=== PATIENT | male | born 1950 | race Caucasian/White ===

== ENCOUNTER 2023-08-06 06:45 | Observation (INO) ==
--- NOTE | 2023-07-04 13:15 | PAT Medication Instructions ---
Medication Instructions Date of Service July 04, 2023 Home Medications allopurinol 300 mg tablet 300 mg PO PM aspirin 81 mg tablet 81 mg PO HS atenolol 50 mg tablet 50 mg PO QAM metformin 500 mg tablet 500 mg PO HS Centrum Adult Multivitamin 1 tab PO QAM omeprazole 20 mg capsule,delayed release 20 mg PO HS travoprost 0.004 % eye drops (Travatan Z) 1 drp ophthalmic (eye) HS MEDICATION INSTRUCTIONS: ASK your prescriber and surgeon aspirin 81 mg tablet 81 mg PO HS DO NOT take the morning of surgery Centrum Adult Multivitamin 1 tab PO QAM Take morning of surgery With a small sip of water, OTHERWISE NOTHING TO EAT OR DRINK AFTER MIDNIGHT: atenolol 50 mg tablet 50 mg PO QAM Take evening before surgery metformin 500 mg tablet 500 mg PO HS allopurinol 300 mg tablet 300 mg PO PM omeprazole 20 mg capsule,delayed release 20 mg PO HS travoprost 0.004 % eye drops (Travatan Z) 1 drp ophthalmic (eye) HS (bring to hospital) Other Notes If you have any questions please call us at [phone] or [phone] or [phone] or [phone]
--- NOTE | 2023-07-06 11:23 | Anesthesiology Consultation ---
Date of Service July 06, 2023 Assessment & Plan (1) Encounter for pre-operative examination: - Check BSG AM DOS - Infectious disease screening: Per assessment on 07/06/23: No known infectious disease contacts or current infectious disease symptoms. No noted recent Covid positive test result. - Outpatient joint assessment: Pt currently scheduled for inpatient pathway. If surgeon requests review for outpatient joint pathway, patient is not recommended candidate for outpatient joint program from anesthesia standpoint based on available information. - Patient acceptable risk for surgery pending surgeon-ordered PCP preop evaluation ([facility], appt 07/25). Chart Review Chart Review: Patient seen in Pre Admission Testing Teaching & Discussion Pre-Anesthesia Teaching/Discussion Notes: Instructed NPO after midnight before surgery,except medications with 15 cc of water. Medication instructions provided according to the PAT guidelines. History Surgery Operation Date: 08/06/23 07:15 Proposed Procedures p Right Total Knee Arthroplasty - Anders Rodriguez MD Height/Weight Height: 5 ft 11 in Weight: 120.6 kg Allergies Allergy/AdvReac Type Severity Reaction Status Date / Time No Known Drug Allergies Allergy Unknown . Verified 07/04/23 15:55 Medications Home Medications Medication Instructions Recorded Confirmed Last Taken allopurinol 300 mg tablet 300 mg PO PM 07/04/23 07/04/23 Unknown aspirin 81 mg tablet 81 mg PO HS 07/04/23 07/04/23 Unknown atenolol 50 mg tablet 50 mg PO QAM 07/04/23 07/04/23 Unknown metformin 500 mg tablet 500 mg PO HS 07/04/23 07/04/23 Unknown multivitamin with minerals-folic 1 tab PO QAM 07/04/23 07/04/23 Unknown acid 80 mcg chewable tablet (Centrum Adult 50 Plus) omeprazole 20 mg capsule,delayed 20 mg PO HS 07/04/23 07/04/23 Unknown release travoprost 0.004 % eye drops 1 drp ophthalmic (eye) HS 07/04/23 07/04/23 Unknown (Travatan Z) Past Medical History Medical History Diabetes type 2, controlled Dyslipidemia GERD (gastroesophageal reflux disease) Glaucoma Gout HTN (hypertension) Obesity Stage 3 chronic kidney disease Exercise / Class Metabolic Activity II 4-5 Yardwork/Stairs/Walk up hill Past Surgical History Surgical History H/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 History of colonoscopy Past Anesthesia History No Hx of Anesthesia Complications and No Family Hx of Anesthesia Complications History of PONV No Hx of PONV and No Hx of Motion Sickness Social History Smoking Status: Former smoker Do You Dip or Chew Tobacco: No Smoking End Date: Quit 1970s Hx Alcohol Use: No Hx Substance Use: No Review of Systems Patient denies chest pain, shortness of breath, dyspnea on exertion, fever, chills, cough, wheezing, palpitations. Physical Exam Vital Signs VITALS BP 124/78 P 53 TEMP 98.0 SP02 98%RA RESP 18 PHYSICAL Full cervical extension range of motion. Full TMJ range of motion. TMD 3 finger breaths Mallampati Score 3 Dentition: missing molar, + implant/+ crown (molars) Lungs: clear throughout to auscultation Cardiac: regular rate and rhythm, no murmurs noted Spine: normal Carotid arteries: negative bruit Extremities: no LE edema Lab Results Anesthesia Preop Results Results Anesthesia Widget: WBC 7.09 K/ul (4.8-10.8) 07/06/23 Hgb 13.4 g/dl (14.0-18.0) L 07/06/23 Hct 40.7 % (42.0-52.0) L 07/06/23 Plt 200 K/uL (130-400) 07/06/23 Na 141 mmol/L (136-145) 07/06/23 K 4.1 mmol/L (3.5-5.1) 07/06/23 Cl 108 mmol/L (98-107) H 07/06/23 CO2 29 mmol/L (21-32) 07/06/23 BUN 23 mg/dl (6-23) 07/06/23 Creat 0.96 mg/dl (0.6-1.4) 07/06/23 Glucose Level 162 mg/dl (70-99(Fasting)) H 07/06/23 PT 11.3 Seconds (9.0-12.0) 07/06/23 PTT 30 Seconds (21-31) 07/06/23 INR 1.0 (0.9-1.1) 07/06/23 HA1c 6.6 % (4.5-5.6) H 07/06/23 Urine Color Dark Yellow 07/06/23 Urine Appearance Clear (Clear) 07/06/23 Urine pH 6.0 (4.5-7.5) 07/06/23 Urine Specific [place] 1.030 (1.000-1.030) 07/06/23 Urine Protein Negative (Negative) 07/06/23 Urine Glucose (UA) Negative (Negative) 07/06/23 Urine Ketones Trace (Negative) H 07/06/23 Urine Blood Negative (Negative) 07/06/23 Urine Nitrite Negative (Negative) 07/06/23 Urine Bilirubin Negative (Negative) 07/06/23 Urine Urobilinogen Negative (Negative) 07/06/23 Urine Leukocyte Esterase Negative (Negative) 07/06/23 Blood Type A Positive 07/06/23 Antibody Screen NEGATIVE 07/06/23 Testing Electrocardiogram Date: 04/05/23 SR with PACs at 90bpm. "Otherwise normal ECG" Chest X-Ray Date: 07/06/23 FINDINGS: Right axillary is enlarged. No pneumothorax, pleural effusion or airspace consolidation mild pulmonary hyperinflation. Spondylotic spurring of the spine. IMPRESSION: No acute process.
--- NOTE | 2023-07-31 09:03 | History & Physical Report ---
Date of Service July 31, 2023 Assessment & Plan (1) Primary osteoarthritis of right knee: Plan: Treatment options discussed with the patient. He has failed conservative measures and would like to proceed with surgery. Risks, benefits and alternatives to surgery including but not limited to infection, DVT, pain, stiffness, need for revision surgery, damage to blood vessels, damage to nerves, PE, , were discussed with the patient and they wish to proceed. Plan on right total knee arthroplasty scheduled for 08/06/23 at [facility] with Dr. Rodriguez. Plan on home health PT post op. Aspirin 81mg twice daily for 1 mo post op for DVT prophylaxis. All questions answered. History of Present Illness Chief Complaint: Right knee pain Primary Care Provider: Emiliano Hightower, DO 73yo male with PMHx significant for DM2, HTN, gout, CKD, who presents with ongoing right knee pain. He has failed conservative measures. Pain is interfering with his daily activity. He would like to proceed with surgical management. Patient denies headaches, sweats, fevers, chills, double vision, blurred vision, cough, sore throat, dysphagia, chest pain, sob, wheezing, n/v/d/c, numbness, tingling, fatigue, urinary symptoms, mood disorders. ROS positive for right knee pain and stiffness. Allergies Allergy/AdvReac Type Severity Reaction Status Date / Time No Known Drug Allergies Allergy Unknown . Verified 07/04/23 15:55 Home Medications Medication Instructions Recorded Confirmed Type allopurinol 300 mg tablet 300 mg PO PM 07/04/23 07/04/23 History aspirin 81 mg tablet 81 mg PO HS 07/04/23 07/04/23 History atenolol 50 mg tablet 50 mg PO QAM 07/04/23 07/04/23 History metformin 500 mg tablet 500 mg PO HS 07/04/23 07/04/23 History multivitamin with minerals-folic 1 tab PO QAM 07/04/23 07/04/23 History acid 80 mcg chewable tablet (Centrum Adult 50 Plus) omeprazole 20 mg capsule,delayed 20 mg PO HS 07/04/23 07/04/23 History release travoprost 0.004 % eye drops 1 drp ophthalmic (eye) HS 07/04/23 07/04/23 History (Layne Walls) Past Med/Surg History Medical History Diabetes type 2, controlled Dyslipidemia GERD (gastroesophageal reflux disease) Glaucoma Gout HTN (hypertension) Obesity Stage 3 chronic kidney disease Surgical History H/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 History of colonoscopy Social History Smoking Status: Former smoker Tobacco Type: Cigarettes Smoking End Date: Quit ; Second Hand Exposure: No; Do You Dip or Chew Tobacco: No; Tobacco Cessation Education Requested by Patient: No Hx Alcohol Use: No Hx Substance Use: No Preferred Language: Mauritian Communication Ability: Effective Upper Trimmer Required: No Beliefs That Will Affect Care: None Current Living Situation: Spouse Other Information That Helps Us Care for You: No Feels Safe at Home: Yes Safety Concerns: Feels Safe At This Time Assistive Devices: Glasses Review of Systems All systems reviewed & are unremarkable except as noted in HPI & below Physical Exam Constitutional: well developed and well nourished; no acute distress Eyes: PERRL, conjunctivae normal, anicteric sclerae ENMT: external ear and nose normal, oropharynx normal Neck: trachea midline, no thyromegaly Respiratory: normal respiratory effort, lungs clear to auscultation Cardiovascular: RRR, no murmur, no edema Musculoskeletal: Right knee: Varus alignment. Mild effusion. Tenderness medial joint line. ROM 15-120 degrees. Stable to valgus and varus stress. Skin: no rashes, warm and dry Neurologic: patellar DTR's 2+ bilat, sensation intact Psychiatric: A+Ox3, euthymic affect Results & Data Diagnostic Findings Right knee x-ray demonstrates mild varus alignment to his knee with [id number] medial compartment with subchondral sclerosis subchondral cystic changes some early bone loss with some subluxation of the femur medial tibial and flexion view. Is maintained patellofemoral joint centrally aligned but patellofemoral osteophytes patellofemoral arthritic changes as well.
[~2023-08-06 06:45] MED LIST: BUPIVACAINE 0.5 % 5 MG/1 ML PF 10ML VIAL ONE; EPINEPHrine INJ 1 MG/ML AMP ONE; ROPIVACAINE 0.5% 5 MG/ML 30 ML VIAL ONE
--- OUTSIDE RECORDS SUMMARY | 2023-08-06 06:52 | External Medical Summary | Summary of Care ---
Author Name Unknown Organization [facility] Address [address] [place] [address] Phone [phone] Care Team Providers Care Hotel Supplies Salesperson Name Role Phone Katja Biggs DO, David Vincent Primary Care Provid er Reason for Visit * Reason Comments Status Check Pre-op clearance Encounter Details Date Type Department Care Team (Latest Contact Info) Description 07/25/2023 8:20 AM EST Office Visit [facility] [address] [place] [phone] Emiliano Hightower Jr., DO [address] [place] [id number] Pre-op evaluation*; Osteoarthritis of right knee, unspecified osteoarthritis type; Type 2 diabetes mellitus 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 chronic kidney disease, 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 ([facility]); Type 2 diabetes mellitus with diabetic neuropathy, without long-term current use of insulin ([facility]); Severe obesity with body mass index (BMI) of 35.0 to 39.9 with comorbidity ([facility]); DM type 2 nursing care encounter (HCC); Nasal drainage Allergies Active Allergy Reactions Criticality Noted Date Comments Atorvastatin Muscle pain 04/01/2019 Brinzolamide 11/29/2002 bitter taste -Azopt documented as of this encounter (statuses as of 07/25/2023) Medications Medication Sig Dispensed Refills Start Date End Date Status ASPIRIN 81 MG PO TABS Take by mouth every night at bedtime . 0 Active metFORMIN HCl ER 500 MG Oral Tablet Extended Release 24 Hour (Glucophage XR) TAKE 1 TABLET DAILY 90 Tablet 2 09/01/2022 Active Omeprazole 20 MG Oral Capsule Delayed Release (PriLOSEC) TAKE 1 CAPSULE AT BEDTIME 90 Capsule 3 09/09/2022 Active Atenolol 50 MG Oral Tablet (Tenormin)Indications :HTN, goal below 140/90 TAKE 1 TABLET EVERY MORNING 90 Tablet 3 11/08/2022 Active Travoprost (FERNANDEZ Free) 0.004 % Ophthalmic Solution (Travatan Z) INSTILL 1 DROP INTO BOTH EYES BEFORE BEDTIME 7.5 mL 3 01/10/2023 Active Allopurinol 300 MG Oral Tablet (Zyloprim)Indications :Gout, unspecified cause, unspecified chronicity, unspecified site TAKE 1 TABLET DAILY 90 Tablet 2 04/12/2023 Active COVID-19 mRNA Vaccine 12 years and above Pfizer 30 MCG/0.3 ML IM SUSP Inject into a large muscle. 0.3 mL 0 04/20/2023 Active documented as of this encounter (statuses as of 07/25/2023) Active Problems Problem Noted Date Diagnosed Date DDD (degenerative disc disease), cervical 2022 Type 2 diabetes mellitus wit h diabetic neuropathy, without long-term current use of insulin 10/17/2022 Type 2 diabetes mellitus wit h stage 3a chronic kidney disease 04/19/2022 Type 2 diabetes mellitus wit h hemoglobin A1c goal of less than 7.0% 04/13/2020 Type 2 diabetes mellitus wit h chronic kidney disease and hypertension 04/13/2020 Primary open angle glaucoma (POAG) of both eyes, moderate stage 07/10/2019 Hereditary and idiopathic peripheral neuropathy 04/01/2019 Hypertensive kidney disease with stage 3 chronic kidney disease 10/24/2018 Severe obesity with body mas s index (BMI) of 35.0 to 39.9 with comorbidity 03/19/2018 Gouty arthropathy 02/27/2017 Advance directive on file 11/24/2014 Overview: No, Advance Directive brochure given to patient at prior appointment. Dyslipidemia 09/15/2013 Contracture of palmar fascia 08/23/2010 PRIM OPEN ANGLE GLAUCOMA 08/29/2004 Esophageal reflux HTN, goal below 140/90 History of colonic polyps Overview: adenomatous repeat colonoscpy un 5 yrs documented as of this encounter (statuses as of 07/25/2023) Resolved Problems Problem Noted Date Diagnosed Date Resolved Date Diabetes mellitus 04/13/2020 10/12/2020 IFG (impaired fasting glucose) 04/01/2019 10/12/2020 Kidney disease, chronic, sta ge III (GFR 30-59 ml/min) 09/23/2018 10/30/2018 Overview: Per CKD protocol #1 Prediabetes 07/31/2017 09/04/2017 Overview: Per Prediabetes protocol #1 Class 2 obesity with body ma ss index (BMI) of 35 to 39.9 without comorbidity 02/27/2017 8 Obesity, Class II, BMI 35-39 .9, isolated (see actual BMI) 09/13/2009 02/27/2017 Overview: Per Obesity Taxonomy Dyslipidemia, goal to be determined 06/03/2009 09/15/2013 Overview: Per Lipid Taxonomy. OBESITY, UNSPECIFIED 09/22/2005 010 Overview: Per Obesity Taxonomy Gout 02/27/2017 HYPERCHOLESTEROLEMIA 009 Overview: Per Lipid Taxonomy. documented as of this encounter (statuses as of 07/25/2023) Immunizations Name Administration Dates Next Due COVID-19 mRNA, LNP-s, No Pre serve, 2-Dose Series (Pfizer) 05/28/2021,09/22/2020,09/01/2020 Covid-19, Mrna, Lnp-s, Pf, B ivalent, 30 Mcg, IM, 12 yrs and above (Pfizer) 04/19/2022 Pneumococcal Conjugate Vacc, 13 Valent (Prevnar) 11/24/2014 Pneumococcal Polysaccharide PPV23 (Pneumovax) 10/12/2020 Season Influenza, Quad, PF, Adjuvanted, 65+ Yrs, IM (FLUAD) 04/13/2020 Seasonal Influenza, PF, 6 M & above, IM , (FluLaval or Fluzone) 03/29/2022,03/10/2021,03/19/2018 Seasonal Influenza, Quadriva lent Hd (Fluzone Hd) 04/20/2023 Seasonal Influenza, Quadriva lent, No Preserve, IM 06/01/2017,03/14/2016 Seasonal Influenza, Split, I IV3, With Preserve, Inj 03/11/2013,05/24/2012,07/04/2011,04/19,04/12/2009 TD - Tetanus/Diptheria (ADULT) 04/19/2000 TDAP (age 10 and older)(Boostrix) 01/02/2018, TDAP (age 11 and older)(Adacel) 06/30/2010 Varicella Zoster Vaccine (Adult) 07/02/2013 Zoster Vaccine Recombinant (Shingrix) 07/14/2020 ,04/20/2020 documented as of this encounter Social History Tobacco Use Types Packs/Day Years Used Date Smoking Tobacco: Former Cigarettes 0.5 1 Q uit: 06/18/1970 Passive Smoke Exposure: Past Smokeless Tobacco: Former Comments:quit 1970 Alcohol Use Standard Drinks/Week Comments Yes 0 (1 standard drink = 0.6 oz pure alcohol) Rare. As of 08.04.2006, the last noted alcohol intake was 3 ounces. PHQ-2 Answer Date Recorded PHQ Adult Total Score 0 04/20/2023 Hunger Vital Sign Answer Date Recorded Within the past 12 months, y ou worried that your food would run out before you got the money to buy more. Never true 09/08/19 23 Within the past 12 months, t he food you bought just didn't last and you didn't have money to get more. Never true 09/07/2022 Sex and Gender Information Value Date Recorded Sex Assigned at Male 04/01/2019 8:39 AM EDT Gender Identity Male 04/01/2019 8:39 AM EDT Sexual Orientation Straight 04/01/2019 8: 39 AM EDT Job Start Date Occupation Industry Not on file Not on file Not on file documented as of this encounter Last Filed Vital Signs Vital Sign Reading Time Taken Comments Blood Pressure 122/70 07/25/2023 8:23 AM EST Pulse 56 07/25/2023 8:23 AM EST Temperature 35.4 C (95.7 F) 07/25/2023 8:23 AM ES T Respiratory Rate - - Oxygen Saturation 98% 07/25/2023 8:23 AM EST Inhaled Oxygen Concentration - - Weight 114.1 kg (251 lb 9.6 oz) 07/25/2023 8:23 AM EST Height 179.1 cm (5' 10.5") 07/25/2023 8:23 AM ES T Body Mass Index 35.59 07/25/2023 8:23 AM EST documented in this encounter Patient Instructions * Patient Instructions* Sarah Keller LPN - 07/25/2023 8:23 AM EST Images from the original note were not included. Diabetic Retinopathy: Evaluating Your Eyes Diabetic retinopathy is a condition that happens when diabetes damages blood vessels in the rear ofthe eye. It can lead to vision loss. To help catch it early, have a complete dilated eye exam at least once a year. During the exam, the eye healthcare provider will review your medical history, examine your eyes, and check your vision. Women who are and have pre-existing type 1 or type 2 diabetes have an increased risk of retinopathy. Women with diabetes should have an eye exam before or in the first trimester. They should continue to be monitored every trimester and for 1 year after delivery, depending on the severity of the retinopathy. The retina is the light-sensitive part of the eye that allows you to see. High blood sugar can damage blood vessels of the retina and cause them to leak or bleed. This damage can lead to abnormal blood vessel growth. This condition is called diabetic retinopathy. You may not have symptoms early in the disease. Later, there may be floaters, blurred vision, or poor night vision. There may also be partial or complete vision loss. Early cases of diabetic retinopathy can be treated by carefully controlling blood sugar, blood pressure, and cholesterol. Surgery or laser treatments may help restore lost vision. Laser surgery can shrink abnormal blood vessels or close ones that are leaking. Medicines injected in the eye can help decrease swelling of the retina. Home care Take all medicines, including insulin or oral diabetic medicine, exactly as prescribed. Follow the diet advised by your healthcare provider. If you have high cholesterol, follow a low-fat, low-cholesterol diet. Monitor blood sugars as advised. Try to achieve your ideal weight. If you smoke, quit smoking. Tobacco use worsens the effect of diabetes on your blood vessels. If you have high blood pressure, consider buying an automatic blood pressure machine. These are available at most pharmacies. Use this to monitor your blood pressure. Report your blood pressure readings to your healthcare provider. Exercise regularly. Follow-up care Follow up with your healthcare provider, or as advised. You must have a complete eye exam at least once a year, more often if needed. Untreated diabetic retinopathy can lead to complete loss of vision. Occupational therapists can help you adapt to any vision loss you have, including learning techniques to safely administer insulin. When to seek medical advice Call your healthcare provider right away if any of these occur. Increasing blurriness or any sudden changes in your vision Sudden flashes of light inside your eye New floaters (small dots or strings that seem to be moving across your field of vision) Eye pain, redness, or discharge from your eyelid New dark spots appearing in your field of vision Halos around lights Dimness of vision Partial or complete loss of vision Women with diabetes should have a complete eye exam before becoming , or as soon as possible when they find out they are . Retinopathy sometimes worsens during . Your eye exam Your eye healthcare provider uses an eye chart and other tools to check your vision. Then he or sheexamines your eyes for signs of disease. You are given eye drops to widen (dilate) your pupils. Youmay have one or more of the following tests: Tonometry to measure fluid pressure inside the eye. Slit lamp exam to allow the healthcare provider to view the structures of your eye. Ultrasound to create an image of the eye using sound waves. Ultrasound may be used if blood is found in the clear gel that fills the eye (vitreous). Ocular coherence tomography (OCT) to create an image of the retina using light waves. This shows ifthere is fluid leaking into certain parts of the eye. It can also measure the thickness of the retina. Fluorescein angiography This test may be done to check the health of the inside lining of the eye (retina). It also checks the tiny blood vessels (capillaries) that carry blood to the retina. During the test: Photographs are taken of the retina. A dye is then injected into the bloodstream through the arm or hand. The dye travels to the capillaries in the eye. More photographs are taken of the retina. The dye causes the capillaries to stand out on the photographs. You may feel brief nausea during the procedure. For a few hours after the test, your skin, eyes, and urine may appear yellow. Talk with your healthcare provider for more information about this test. Date Last Reviewed: 11/17/[id number] [employer]. [address] [place] [address], [place] [address]. All rights reserved. This information is not intended as a substitute for professional medical care. Always follow your healthcare professional's instructions. documented in this encounter Progress Notes * Emiliano Hightower Jr., DO - 07/25/2023 8:54 AM EST Subjective: Mateusz Kelly is a 73 year old male. Chief Complaint Patient presents with Status Check Pre-op clearance HPI: patient presents today for pre op evaluation for right knee replacement. Overall doing ok, buthaving more sinus and nasal drainage. Comes and goes, restarted this AM. No fevers, N/V. Wants COVID testing for this- agreed and ordered. No CP or SOB. No personal or family history of problems withsurgery or anesthesia. Of note have blood work from [facility], but no EKG or CXR- per patient was ordered and checked by surgeon. Has instructions on when and what medication to hold prior to surgery. No other new complaints. PHM: Patient Active Problem List Diagnosis Code PRIM OPEN ANGLE GLAUCOMA H40.1190 Esophageal reflux K21.9 HTN, goal below 140/90 I10 History of colonic polyps Z86.010 Contracture of palmar fascia M72.0 Dyslipidemia E78.5 Advance directive on file Z78.9 Gouty arthropathy M10.9 Severe obesity with body mass index (BMI) of 35.0 to 39.9 with comorbidity (HCC) E66.01 Hypertensive kidney disease with stage 3 chronic kidney disease (HCC) I12.9, N18.30 Hereditary and idiopathic peripheral neuropathy G60.9 Primary open angle glaucoma (POAG) of both eyes, moderate stage H40.1132 Type 2 diabetes mellitus with hemoglobin A1c goal of less than 7.0% (HCC) E11.9 Type 2 diabetes mellitus with chronic kidney disease and hypertension [id number] Type 2 diabetes mellitus 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 chronic kidney disease (HCC) E11.22, N18.31 Type 2 diabetes mellitus with diabetic neuropathy, without long-term current use of insulin ([facility]) E11.40 DDD (degenerative disc disease), cervical M50.30 Current Outpatient Medications Medication Sig Dispense Refill ASPIRIN 81 MG PO TABS Take by mouth every night at bedtime . metFORMIN HCl ER 500 MG Oral Tablet Extended Release 24 Hour (Glucophage XR) TAKE 1 TABLET DAILY 90Tablet 2 Omeprazole 20 MG Oral Capsule Delayed Release (PriLOSEC) TAKE 1 CAPSULE AT BEDTIME 90 Capsule 3 Atenolol 50 MG Oral Tablet (Tenormin) TAKE 1 TABLET EVERY MORNING 90 Tablet 3 Travoprost (FERNANDEZ Free) 0.004 % Ophthalmic Solution (Travatan Z) INSTILL 1 DROP INTO BOTH EYES BEFOREBEDTIME 7.5 mL 3 Allopurinol 300 MG Oral Tablet (Zyloprim) TAKE 1 TABLET DAILY 90 Tablet 2 COVID-19 mRNA Vaccine 12 years and above Pfizer 30 MCG/0.3 ML IM SUSP Inject into a large muscle. 0.3 mL 0 No current facility-administered medications for this visit. Past Medical History: Diagnosis Date Benign neoplasm of colon adenomatous repeat colonoscpy un 5 yrs Cataract incipient, senile OU CKD (chronic kidney disease), stage III ([facility]) Dry eyes Dyslipidemia, goal LDL below 160 Esophageal reflux Gout HTN, goal below 140/90 IFG (impaired fasting glucose) 04/01/2019 INFORMATION 01/2006 pachy 532/508;+1/+3 Primary open angle glaucoma 0.85/0.90+ (07/08)Tmax 24/; VF (04/09);HRT 02/25 Type 2 diabetes mellitus with hemoglobin A1c goal of less than 7.0% ([facility]) 04/13/2020 Past Surgical History: Procedure Laterality Date COLONOSCOPY W/ LESION REMOVAL, SNARE 09/06/2007 polyp x 3- adenomatous repeat in 5 yrs COLONOSCOPY, DIAGNOSTIC (RECTUM) 09/23/2012 COLONOSCOPY FLEXIBLE PROXIMAL DIAGNOSTIC performed by Alessio Marsh MD at [facility]COPY [facility] COLONOSCOPY, DIAGNOSTIC (RECTUM) 09/12/2017 internal hemorrhoids/recall 5 years/COLONOSCOPY FLEXIBLE PROXIMAL DIAGNOSTIC performed by Alessio Fan MD at [facility] COLONOSCOPY, DIAGNOSTIC (RECTUM) N/A 02/22/2023 diverticulosis/COLONOSCOPY FLEXIBLE PROXIMAL DIAGNOSTIC performed by Harper Bal MD at [facility] LASER TRABECULOPLASTY 01/09/2008 ALT OS inf 180 LASER TRABECULOPLASTY 02/06/2008 ALT OD inf 180 RELEASE PALM CONTRACTURE W/DIGIT Left 05/15/2022 FASCIECTOMY PARTIAL PALMAR ADDITIONAL DIGITS performed by Avinash Fox Jr., MD at OR [facility] Family History Problem Relation Age of Onset Diabetes Grandmother (Maternal) Review of patient's allergies indicates: Allergen Reactions Atorvastatin Muscle pain Brinzolamide bitter taste -Azopt Extensive ROS Constitutional (f/c/wt/vision/hearing): Negative Resp (cough/sob/woods): see above hpi CV (cp/palp/fluttering/diaphoresis/woods/pnd):Negative GI (n/v/d/hrtburn): Negative Endo (hair/cold or heat intol/ 3 p's): Negative Neuro (shaking/weak/fatigu/parasthesi/): Negative Skin (rash/easy bruis/xerosis): Negative (nocturia/hesit/drib/sexual review): Negative Objective: BP 122/70 | Pulse 56 | Temp 35.4 C (95.7 F) (Temporal Artery) | Ht 1.791 m (5' 10.5") | Wt 114.1 kg (251 lb 9.6 oz) | SpO2 98% | BMI 35.59 kg/m | BSA 2.38 m Physical Exam: General: alert, healthy, no distress Head: Normocephalic, No masses, lesions, tenderness or abnormalities Ears: External ears normal, Canals clear, TM's Normal Neck: supple, no adenopathy, no bruits, thyroid normal size, non-tender, without nodularity Heart: regular rate & rhythm, no murmurs and no gallops Lungs: clear to auscultation Abdomen: abdomen soft, nontender, normal bowel sounds and no masses or organomegaly Neuro Exam: alert & oriented x 3 with fluent speech Skin: skin color, texture, turgor are normal, no rashes or significant lesions ASSESSMENT: ICD-10-CM 1. Pre-op evaluation Z01.818 2. Osteoarthritis of right knee, unspecified osteoarthritis type M17.11 3. 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 Type 2 diabetes mellitus with diabetic neuropathy, without long-term current use of insulin (HCC) E11.40 5. Severe obesity with body mass index (BMI) of 35.0 to 39.9 with comorbidity (HCC) E66.01 6. DM type 2 nursing care encounter (HCC) E11.9 7. Nasal drainage J34.89 PLAN: (Z01.818) Pre-op evaluation (primary encounter diagnosis) (M17.11) Osteoarthritis of right knee, unspecified osteoarthritis type Plan: Pending PCR, medically optimized. Will inform surgeon as such. (E11.22, N18.31) Type 2 diabetes mellitus 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 chronic kidney disease, unspecified whetherlong term insulin use (HCC) (E11.40) Type 2 diabetes mellitus with diabetic neuropathy, without long-term current use of insulin (HCC) (E66.01) Severe obesity with body mass index (BMI) of 35.0 to 39.9 with comorbidity (HCC) Plan: Continue to follow with at regularly scheduled follow up exams. (E11.9) DM type 2 nursing care encounter (HCC) Plan: TELEMEDICINE DIABETIC EYE As above. (J34.89) Nasal drainage Plan: INFLUENZA A/B RSV SARS-COV2,PCR Will check as above and treat accordingly. May use OTC zyrtec or radha otherwise for symptoms. Ifgetting worse, contact the office. Follow Up: Return if symptoms worsen or fail to improve. Return to the office as ordered. Return sooner if having any other problems or concerns. Emiliano Hightower Jr, DO * Sarah Keller LPN - 07/25/2023 8:23 AM EST Images from the original note were not included. The importance of having a yearly diabetic eye exam has been discussed with patient. Order and/or Referral placed along with patient instructions. Provider made aware. Sarah Keller LPN The importance of having a yearly diabetic eye exam has been discussed with patient. Order and/or Referral placed along with patient instructions. Provider made aware. Sarah Keller LPN Diabetic Retinopathy: Evaluating Your Eyes Diabetic retinopathy is a condition that happens when diabetes damages blood vessels in the rear ofthe eye. It can lead to vision loss. To help catch it early, have a complete dilated eye exam at least once a year. During the exam, the eye healthcare provider will review your medical history, examine your eyes, and check your vision. Women who are and have pre-existing type 1 or type 2 diabetes have an increased risk of retinopathy. Women with diabetes should have an eye exam before or in the first trimester. They should continue to be monitored every trimester and for 1 year after delivery, depending on the severity of the retinopathy. The retina is the light-sensitive part of the eye that allows you to see. High blood sugar can damage blood vessels of the retina and cause them to leak or bleed. This damage can lead to abnormal blood vessel growth. This condition is called diabetic retinopathy. You may not have symptoms early in the disease. Later, there may be floaters, blurred vision, or poor night vision. There may also be partial or complete vision loss. Early cases of diabetic retinopathy can be treated by carefully controlling blood sugar, blood pressure, and cholesterol. Surgery or laser treatments may help restore lost vision. Laser surgery can shrink abnormal blood vessels or close ones that are leaking. Medicines injected in the eye can help decrease swelling of the retina. Home care Take all medicines, including insulin or oral diabetic medicine, exactly as prescribed. Follow the diet advised by your healthcare provider. If you have high cholesterol, follow a low-fat, low-cholesterol diet. Monitor blood sugars as advised. Try to achieve your ideal weight. If you smoke, quit smoking. Tobacco use worsens the effect of diabetes on your blood vessels. If you have high blood pressure, consider buying an automatic blood pressure machine. These are available at most pharmacies. Use this to monitor your blood pressure. Report your blood pressure readings to your healthcare provider. Exercise regularly. Follow-up care Follow up with your healthcare provider, or as advised. You must have a complete eye exam at least once a year, more often if needed. Untreated diabetic retinopathy can lead to complete loss of vision. Occupational therapists can help you adapt to any vision loss you have, including learning techniques to safely administer insulin. When to seek medical advice Call your healthcare provider right away if any of these occur. Increasing blurriness or any sudden changes in your vision Sudden flashes of light inside your eye New floaters (small dots or strings that seem to be moving across your field of vision) Eye pain, redness, or discharge from your eyelid New dark spots appearing in your field of vision Halos around lights Dimness of vision Partial or complete loss of vision Women with diabetes should have a complete eye exam before becoming , or as soon as possible when they find out they are . Retinopathy sometimes worsens during . Your eye exam Your eye healthcare provider uses an eye chart and other tools to check your vision. Then he or sheexamines your eyes for signs of disease. You are given eye drops to widen (dilate) your pupils. Youmay have one or more of the following tests: Tonometry to measure fluid pressure inside the eye. Slit lamp exam to allow the healthcare provider to view the structures of your eye. Ultrasound to create an image of the eye using sound waves. Ultrasound may be used if blood is found in the clear gel that fills the eye (vitreous). Ocular coherence tomography (OCT) to create an image of the retina using light waves. This shows ifthere is fluid leaking into certain parts of the eye. It can also measure the thickness of the retina. Fluorescein angiography This test may be done to check the health of the inside lining of the eye (retina). It also checks the tiny blood vessels (capillaries) that carry blood to the retina. During the test: Photographs are taken of the retina. A dye is then injected into the bloodstream through the arm or hand. The dye travels to the capillaries in the eye. More photographs are taken of the retina. The dye causes the capillaries to stand out on the photographs. You may feel brief nausea during the procedure. For a few hours after the test, your skin, eyes, and urine may appear yellow. Talk with your healthcare provider for more information about this test. Date Last Reviewed: 11/17/[id number] [employer]. [address] [place] [address], [place] [address]. All rights reserved. This information is not intended as a substitute for professional medical care. Always follow your healthcare professional's instructions. documented in this encounter Nursing Notes * Sarah Keller LPN - 07/25/2023 8:20 AM EST Chief Complaint Patient presents with Status Check Pre-op clearance He has sinus drainage and a cough from the drainage. He would like a COVID test today. No fever. Hen[place] this just started this morning. documented in this encounter Plan of Treatment Upcoming Encounters Date Type Department Care Team (Late st Contact Info) Description 08/02/2023 10:30 AM EST Office Visit Ophthalmology, [place] [address] [phone] Nelson Cárdenas MD [address] [address] 10/24/2023 9:00 AM EDT Office Visit [facility] [address] [place] [phone] Emiliano Hightower Jr., DO [address] [place] [phone] Pending Results Name Type Priority Associated Diagnoses Date /Time INFLUENZA A/B RSV SARS-COV2,PCR Lab Routine Nasal drainage 07/25/2023 9:06 AM EST Scheduled Orders Name Type Priority Associated Diagnoses Orde r Schedule INFLUENZA A/B RSV SARS-COV2,PCR Lab Routine Nasal drainage Expected: 07/25/2023 (Approximate), Expires: 07/24/2024 Health Maintenance Due Date Last Done Comments Hepatitis C Screening 1968 Hepatitis B (1 of 3 - Risk 3-dose series) 2008 B-12 10/18/2022 10/18/2021, 09/16, 02/28/2017 COVID-19 Vaccine ( season) 2023 04/19/2022, 05/28/2021, 09/22/2020, Additional history exists Albumin/Creatinine Ratio 04/10/2023 022, 04/18/2021, 04/13/2020, Additional history exists GFR 01/04/2024 07/06/2023, 03/20, 04/05/2023, Additional history exists HbA1c 01/04/2024 07/06/2023, 03/20, 10/12/2022, Additional history exists CKD PHOS USE SMARTSET 04232 04/16/202403/20, 10/18/2021, 10/01/2020, Additional history exists Depression Screening 04/20/2024 04/20/2023 Diabetic Foot Exam 04/20/2024 04/20/2023, 1 06/19/2021, 04/18/2021, Additional history exists CKD HGB USE SMARTSET 74964 07/06/202407/06, 2023, 04/05/2023, Additional history exists Diabetic Eye Exam 07/25/2024 07/25/2023, , 06/24/2021, Additional history exists DTaP,Tdap,and Td Vaccines (4 - Td or Tdap) 01/03/2028 01/02/2018, 06/30/2010, 06/30/2010, Additional history exists COLONOSCOPY-EVERY 5 YRS AGES 18-100 02/23/2028 02/22/2023, 02/22/2023, 09/12/2017, Additional history exists Zoster Vaccines Completed 07/14/2020, 08/2019, 07/02/2013 Pneumococcal Vaccine: 65+ Years Completed 10/12/2020, 11/24/2014 Influenza Vaccine (FLU shot) Completed 08/2022, 03/29/2022, 03/10/2021, Additional history exists GARDASIL-HPV IMMUNIZATION SERIES Aged Out No longer eligible based on patient's age to complete this topic MENINGOCOCCAL (MENACTRA/MENVEO) Aged Out No longer eligible based on patient's age to complete this topic documented as of this encounter Medical Devices Not on filedocumented as of this encounter Procedures Procedure Name Priority Date/Time Associated Diagnosis Comments TELEMEDICINE DIABETIC EYE Routine 07/25/2023 DM type 2 nursing care encounter (HCC) documented in this encounter Results * TELEMEDICINE DIABETIC EYE (07/25/2023) 07/25/2023 Emiliano Hightower Jr., DO DIGITAL PHOT OGRAPHY documented in this encounter Visit Diagnoses Diagnosis Pre-op evaluation- Primary Preoperative examination, unspecified Osteoarthritis of right knee, unspecified osteoarthritis type Type 2 diabetes mellitus 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 chronic kidney disease, unspecified whether care home insulin use (HCC) Severe obesity with body mass index (BMI) of 35.0 to 39.9 with comorbidity (HCC) DM type 2 nursing care encounter (HCC) Type II or unspecified type diabetes mellitus without mention of complication, not stated as uncontrolled Nasal drainage Other diseases of nasal cavity and sinuses documented in this encounter Advance Directives Latest Code Status on File Code Status Date Activated Date Inactivated Comments Full Code 05/15/2022 10:38 AM 05/15/2022 6:14 PM Th is order reflects the patients wishes and were consensually agreed upon. Question Answer Comments Discussion of Advance Directives occurred with: Not Discussed due to patient's condition Does the patient have a Living Will? No Does the patient have Health Care Power of Photographer Portrait? No Care Teams Hotel Supplies Salesperson Relationship Specialty Start Date End Date Emiliano Hightower Jr., DO [address] [place] [address] PCP - General Family Medicine 11/13/19 documented as of this encounter
--- OUTSIDE RECORDS SUMMARY | 2023-08-06 06:52 | External Medical Summary | Summary of Care ---
Author Name Unknown Organization [facility] Address [address] [place] [address] Phone [phone] Care Team Providers Care Automotive Sales Representative Name Role Phone Katja Biggs DO, David Vincent Primary Care Provid er Reason for Visit * Reason Comments Follow Up Encounter Details Date Type Department Care Team (Late st Contact Info) Description 08/02/2023 7:30 AM EST Office Visit Ophthalmology, [place] [address] [phone] Nelson Cárdenas MD [address] [phone] Primary open angle glaucoma (POAG) of both eyes, mild stage*; Combined forms of age-related cataract of both eyes; Meibomian gland disease, unspecified laterality Allergies Active Allergy Reactions Criticality Noted Date Comments Atorvastatin Muscle pain 04/01/2019 Brinzolamide 11/29/2002 bitter taste -Azopt documented as of this encounter (statuses as of 08/02/2023) Medications Medication Sig Dispensed Refills Start Date [...] as of this encounter (statuses as of 08/02/2023) Active Problems Problem Noted Date Diagnosed Date [...] as of this encounter (statuses as of 08/02/2023) Resolved Problems Problem Noted Date Diagnosed Date [...] as of this encounter (statuses as of 08/02/2023) Immunizations Name Administration Dates Next Due COVID-19 mRNA, LNP-s, No Pre serve, 2-Dose Series ([employer]) 05/28/2021,09/22/2020,09/01/2020 Covid-19, Mrna, Lnp-s, Pf, B ivalent, [...] Split, I IV3, With Preserve, Inj 03/11/2013,05/24/2012,07/04/2011,04/19,04/12/2009 TDAP (age 10 and older)(Boostrix) 01/02/2018, TDAP (age 11 and older)(Adacel) 06/30/2010 Varicella Zoster Vaccine (Adult) 07/02/2013 Zoster Vaccine Recombinant (Shingrix) 07/14/2020 ,04/20/2020 documented as of this encounter Social History Tobacco Use Types Packs/Day Years Used Date Smoking Tobacco: Former Cigarettes 0.5 1 Q uit: 06/18/1970 Passive Smoke Exposure: Past Smokeless Tobacco: Former Tobacco Cessation:Counseling Given: No Comments:quit 1970 Alcohol Use Standard Drinks/Week Comments [...] on file documented as of this encounter Progress Notes * Nelson Cárdenas MD - 08/02/2023 7:46 AM EST [facility] DEPARTMENT OF OPHTHALMOLOGY OUTPATIENT CLINIC NOTES PATIENT NAME: Mateusz Kelly (73 year old male) PRIMARY CARE PHYSICIAN: Emiliano Hightower Jr, DO CC: IOP check for glaucoma HPI: using drops regularly POH: see below ROS: no eye pain Past Medical History: Diagnosis Date Benign neoplasm of colon adenomatous repeat colonoscpy un 5 yrs Cataract incipient, senile OU CKD (chronic kidney disease), stage III ([facility]) Dry eyes Dyslipidemia, goal LDL below 160 Esophageal reflux Gout HTN, goal below 140/90 IFG (impaired fasting glucose) 04/01/2019 INFORMATION 01/2006 pachy 532/508;+1/+3 Primary open angle glaucoma 0.85/0.90+ (07/08)Tmax ; VF (04/09);HRT 02/25 Type 2 diabetes mellitus with hemoglobin A1c goal of less than 7.0% ([facility]) 04/13/2020 Past Surgical History: Procedure Laterality Date COLONOSCOPY W/ LESION REMOVAL, SNARE 09/06/2007 polyp x 3- adenomatous repeat in 5 yrs COLONOSCOPY, DIAGNOSTIC (RECTUM) 09/23/2012 COLONOSCOPY FLEXIBLE PROXIMAL DIAGNOSTIC performed by Alessio Marsh MD at ENDOSCOPY [facility] COLONOSCOPY, DIAGNOSTIC (RECTUM) 09/12/2017 internal hemorrhoids/recall 5 years/COLONOSCOPY FLEXIBLE PROXIMAL DIAGNOSTIC performed by Alessio Fan MD at ENDOSCOPY [facility] COLONOSCOPY, DIAGNOSTIC (RECTUM) N/A 02/22/2023 diverticulosis/COLONOSCOPY FLEXIBLE PROXIMAL DIAGNOSTIC performed by Harper Bal MD at ENDOSCOPY [facility] LASER TRABECULOPLASTY 01/09/2008 ALT OS inf 180 LASER TRABECULOPLASTY 02/06/2008 ALT OD inf 180 RELEASE PALM CONTRACTURE W/DIGIT Left 05/15/2022 FASCIECTOMY PARTIAL PALMAR ADDITIONAL DIGITS performed by Avinash Fox Jr., MD at OR [facility] Meds: Current Outpatient Medications Medication Sig Dispense Refill [...] No current facility-administered medications for this visit. Allergies: Review of patient's allergies indicates: Allergen Reactions Atorvastatin Muscle pain Brinzolamide bitter taste -Azopt EXAM: VA (CC) OD: 20/30 VA (CC) OS: 20/40 EXTERNAL: CVF: Full OU Lids:MGD Conjunctiva: WNL OU Pupils: PERRL; no APD EOM: Full SLIT LAMP Cornea: clear OU Tear Film: WNL OU A/C: D/Q OU Lens: 1+ NS, 1+ cortical OD; 1+ NS OS TA OD: 10; OS: 11; 7:47 AM DILATED EXAM: Dilated with Mydriacyl 1% and Mydfrin 2.5%; advised re driving Lens used: 28 D and 90 D Vitreous: clear OU C/D: 0.85 OD; 0.95 OS Macula: WNL OD; WNL OS Periphery: WNL OD; WNL OS ASSESSMENT/PLAN Chronic open angle glaucoma - IOP controlled --Continue present eye meds - use punctal occlusion; discussed side effects --RTC 4 mo Cataracts OU - watch MGD --tears PRN Nelson Cárdenas MD 08/02/2023 7:47 AM documented in this encounter Nursing Notes * Linda Orozco COT - 08/02/2023 7:33 AM EST Pt here for 4 mo dilation VA (CC) OD: VA (CC) OS: 40 documented in this encounter Plan of Treatment Upcoming Encounters Date Type Department Care Team (Late st Contact Info) Description 10/24/2023 9:00 AM EDT Office Visit [facility] [address] [place] [phone] Emiliano Hightower Jr., DO [address] [place] [phone] 12/04/2023 8:30 AM EDT Office Visit Ophthalmology, [place] [address] [phone] Nelson Cárdenas MD [address] [phone] Health Maintenance Due Date Last Done Comments Hepatitis C Screening 1968 Hepatitis B (1 of 3 - Risk 3-dose series) 2008 B-12 10/18/2022 10/18/2021, 09/16, 02/28/2017 COVID-19 Vaccine ( season) 2023 04/19/2022, 05/28/2021, 09/22/2020, Additional history exists Albumin/Creatinine Ratio 04/10/20232 022, 04/18/2021, 04/13/2020, Additional history exists GFR 01/04/2024 07/06/2023, 03/20, 04/05/2023, Additional history exists HbA1c 01/04/2024 07/06/2023, 03/20, 10/12/2022, Additional history exists CKD PHOS USE SMARTSET 43916 04/16/202403/20, 10/18/2021, 10/01/2020, Additional history exists Depression Screening 04/20/2024 04/20/2023 Diabetic Foot Exam 04/20/2024 04/20/2023, 1 06/19/2021, 04/18/2021, Additional history exists CKD HGB USE SMARTSET 31407 07/06/202407/06, 2023, 04/05/2023, Additional history exists Diabetic [...] Not on filedocumented as of this encounter Visit Diagnoses Diagnosis Primary open angle glaucoma (POAG) of both eyes, mild stage- Primary Combined forms of age-related cataract of both eyes Other and combined forms of senile cataract Meibomian gland disease, unspecified laterality documented in this encounter Advance Directives Latest [...] the patient have Health Care Power of Analytics Architect? No Care Teams Automotive Sales Representative Relationship Specialty Start Date End Date Katja Biggs, Emiliano Szymanski DO [address] [place] [address] PCP - General Family Medicine 11/13/19 documented as of this encounter
--- OUTSIDE RECORDS SUMMARY | 2023-08-06 06:52 | External Medical Summary | Summary of Care ---
Author Name Unknown Organization [facility] Address [address] [place] [address] Phone [phone] Care Team Providers Care Scorer Single Name Role Phone Katja Biggs DO, David Vincent Primary Care Provid er Reason for Visit * Reason Onset Date Comments Test Results Lab 07/30/2023 Encounter Details Date Type Department Care Team (Late st Contact Info) Description 07/30/2023 Telephone [facility] [address] [place] [phone] Emiliano Hightower Jr., DO [address] [place] [phone] Test Results Lab Allergies Active Allergy Reactions Criticality Noted Date Comments Atorvastatin Muscle pain 04/01/2019 Brinzolamide 11/29/2002 bitter taste -Azopt documented as of this encounter (statuses as of 07/31/2023) Medications Medication Sig Dispensed Refills Start Date [...] as of this encounter (statuses as of 07/31/2023) Active Problems Problem Noted Date Diagnosed Date [...] as of this encounter (statuses as of 07/31/2023) Resolved Problems Problem Noted Date Diagnosed Date [...] as of this encounter (statuses as of 07/31/2023) Immunizations Name Administration Dates Next Due COVID-19 mRNA, LNP-s, No Pre serve, 2-Dose Series ([employer]) 05/28/2021,09/22/2020,09/01/2020 Covid-19, Mrna, Lnp-s, Pf, B ivalent, [...] on file documented as of this encounter Miscellaneous Notes * Telephone Encounter - Dona Jackman LPN - 07/31/2023 10:35 AM EST Patient aware * Telephone Encounter - Emiliano Hightower Jr., DO - 07/30/2023 8:41 AM EST PCR negative for COVID, flu and RSV. Please inform the patient. documented in this encounter Plan of Treatment Upcoming Encounters Date Type Department Care Team (Late st Contact Info) Description 08/02/2023 10:30 AM EST Office Visit Ophthalmology, [place] [address] [phone] Nelson Cárdenas MD [address] [address] 10/24/2023 9:00 AM EDT Office Visit [facility] [address] [place] [address] Emiliano Hightower Jr., DO [address] [place] [address] Health Maintenance Due Date Last Done Comments [...] Additional history exists CKD PHOS USE SMARTSET 21235 04/16/202403/20, 10/18/2021, 10/01/2020, Additional history exists Depression Screening 04/20/2024 04/20/2023 Diabetic Foot Exam 04/20/2024 04/20/2023, 1 06/19/2021, 04/18/2021, Additional history exists CKD HGB USE SMARTSET 90476 07/06/202407/06, 2023, 04/05/2023, Additional history exists Diabetic Eye Exam 07/25/2024 07/25/2023, , 06/24/2021, Additional history exists DTaP,Tdap,and Td Vaccines (4 - Td or Tdap) 01/03/2028 01/02/2018, 06/30/2010, 06/30/2010, Additional history exists COLONOSCOPY-EVERY 5 YRS AGES 18-100 02/23/2028 02/22/2023, 02/22/2023, 09/12/2017, Additional history exists Zoster Vaccines Completed 07/14/2020, 1108/2019, 07/02/2013 Pneumococcal Vaccine: 65+ Years Completed 10/12/2020, [...] Not on filedocumented as of this encounter Advance Directives Latest Code Status [...] the patient have Health Care Power of Classified Advertising Supervisor? No Care Teams Scorer Single Relationship Specialty Start Date End Date Emiliano Hightower Jr., DO [address] [place] [address] PCP - General Family Medicine 11/13/19 documented as of this encounter
--- OUTSIDE RECORDS SUMMARY | 2023-08-06 06:52 | External Medical Summary | Summary of Care ---
Author Name Unknown Organization [facility] Address [address] [place] [address] Phone [phone] Care Team Providers Care Data Analytics Developer Name Role Phone Katja Biggs DO, David Vincent Primary Care Provid er Reason for Visit * Reason Comments Status Check Pre-op clearance Encounter Details Date Type Department Care Team (Latest Contact Info) Description 07/25/2023 8:20 AM EST Office Visit [facility] [address] [place] [phone] Emiliano Hightower Jr., DO [address] [place] [address] Pre-op evaluation*; Osteoarthritis of right knee, unspecified osteoarthritis type; Type 2 diabetes mellitus 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 chronic kidney disease, unspecified whether ocean transportation intermediary insulin use ([facility]); Type 2 diabetes mellitus with diabetic neuropathy, without long-term current use of insulin ([facility]); Severe obesity with body mass index (BMI) of 35.0 to 39.9 with comorbidity ([facility]); DM type 2 nursing care encounter (HCC); [...] information about this test. Date Last Reviewed: 11/17/201519997303-8751 [employer]. [address] [place] [address], [place] [address]. All rights reserved. This information is not [...] anesthesia. Of note have blood work from [facility], but no EKG or CXR- per patient [...] mellitus with chronic kidney disease and hypertension [id number] Type 2 diabetes mellitus 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 chronic kidney disease (HCC) E11.22, N18.31 Type 2 diabetes mellitus with diabetic neuropathy, without long-term current use of insulin ([facility]) E11.40 DDD (degenerative disc disease), cervical M50.30 [...] OU CKD (chronic kidney disease), stage III ([facility]) Dry eyes Dyslipidemia, goal LDL below 160 Esophageal reflux Gout HTN, goal below 140/90 IFG (impaired fasting glucose) 04/01/2019 INFORMATION 01/2006 pachy 532/508;+1/+3 Primary open angle glaucoma 0.85/0.90+ (07/08)Tmax 24/; VF (04/09);HRT 02/25 Type 2 diabetes mellitus with hemoglobin A1c goal of less than 7.0% ([facility]) 04/13/2020 Past Surgical History: Procedure Laterality Date COLONOSCOPY W/ LESION REMOVAL, SNARE 09/06/2007 polyp x 3- adenomatous repeat in 5 yrs COLONOSCOPY, DIAGNOSTIC (RECTUM) 09/23/2012 COLONOSCOPY FLEXIBLE PROXIMAL DIAGNOSTIC performed by Alessio Marsh MD at ENDOSCOPY [facility] COLONOSCOPY, DIAGNOSTIC (RECTUM) 09/12/2017 internal hemorrhoids/recall 5 years/COLONOSCOPY FLEXIBLE PROXIMAL DIAGNOSTIC performed by Alessio Fan MD at ENDOSCOPY [facility] COLONOSCOPY, DIAGNOSTIC (RECTUM) N/A 02/22/2023 diverticulosis/COLONOSCOPY FLEXIBLE PROXIMAL DIAGNOSTIC performed by Harper Bal MD at ENDOSCOPY [facility] LASER TRABECULOPLASTY 01/09/2008 ALT OS inf 180 LASER TRABECULOPLASTY 02/06/2008 ALT OD inf 180 RELEASE PALM CONTRACTURE W/DIGIT Left 05/15/2022 FASCIECTOMY PARTIAL PALMAR ADDITIONAL DIGITS performed by Avinash Fox Jr., MD at OR [facility] Family History Problem Relation Age of Onset [...] stage 3a chronic kidney disease, unspecified whether ocean transportation intermediary insulin use (HCC) E11.22 N18.31 4. Type [...] information about this test. Date Last Reviewed: 11/17/201519995049-1354 [employer]. [address] [place] [address], [place] [address]. All rights reserved. This information is not [...] 08/02/2023 10:30 AM EST Office Visit Ophthalmology, [place] [address] [address] Nelson Cárdenas MD [address] [address] 10/24/2023 9:00 AM EDT Office Visit [facility] [address] [place] [phone] Emiliano Hightower Jr., DO [address] [place] [phone] Pending Results Name Type Priority Associated Diagnoses [...] Additional history exists CKD PHOS USE SMARTSET 98299 04/16/202403/20, 10/18/2021, 10/01/2020, Additional history exists Depression Screening 04/20/2024 04/20/2023 Diabetic Foot Exam 04/20/2024 04/20/2023, 1 06/19/2021, 04/18/2021, Additional history exists CKD HGB USE SMARTSET 33163 07/06/202407/06, 2023, 04/05/2023, Additional history exists Diabetic [...] stage 3a chronic kidney disease, unspecified whether penitentiary insulin use (HCC) Severe obesity with body [...] the patient have Health Care Power of Product Info Specialist? No Care Teams Data Analytics Developer Relationship Specialty Start Date End Date Emiliano Hightower Jr., DO [address] [place] [address] PCP - General Family Medicine 11/13/19 documented as of this encounter
--- OUTSIDE RECORDS SUMMARY | 2023-08-06 06:52 | External Medical Summary ---
Author Name Unknown Address Unknown Organization K01:[facility] - [address] [facility] [address] Laboratory Report Ordering Provider Test Date Status CASIMIRO PRATHER JR 07/25/2023 09:06:08 Final Observation Date Value Abnormality Reference (Units ) Status SARS Coronavirus 2 07/25/2023 09:06:08 Negative N egative Final No SARS-CoV2 Coronavirus RNA detected by PCR (amplified probe).
This automated test was developed and its performance characteristics determined by [facility]. It has not been cleared or approved by the U.S. Food and Drug Administration (FDA). FDA does not require this test to go thru premarket FDA review. This test is used for clinical purposes. It should not be regarded as investigational or for research. This laboratory is certified under the Clinical Laboratory Improvement Amendments (CLIA) as qualified to perform high complexity clinical laboratory testing.

This test is a nucleic acid amplification test (NAAT), a reverse transcriptase polymerase chain reaction (RT-PCR) test, or a Centers for Disease Control-acceptable equivalent. The test is performed in a high complexity Clinical Laboratory Improvement Amendments-(CLIA) certified laboratory. The test is acceptable for SARS-CoV-2 diagnosis, surveillance, and travel within the [place] and to most countries. Please check with local testing authorities about requirements before travel.

The validation of bronchial specimens, tracheal aspirates, and sputum for this assay was developed and performance characteristics determined by [facility]. The validation of alternate specimen types has not been cleared or approved by the U.S. Food and Drug Administration (FDA). It has been determined that such clearance or approval is not necessary. Influenza virus A RNA [Prese nce] in Specimen by [facility] with probe detection 07/25/2023 09:06:08 Negative Negative Final No Influenza A RNA detected by PCR (amplified probe) Influenza virus B RNA [Prese nce] in Specimen by [facility] with probe detection 07/25/2023 09:06:08 Negative Negative Final No Influenza B RNA detected by PCR (amplified probe) Respiratory syncytial virus RNA [Identifier] in Specimen by [facility] with probe detection 07/25/2023 09:06:08 Negative Negative Final No Respiratory Syncytial Vir us RNA detected by PCR (amplified probe) Performing Location [facility] - [facility] [address] [facility] [address]
--- NOTE | 2023-08-06 07:06 | History & Physical Bridge Note ---
Date of Service August 06, 2023 History & Physical Bridge Note I have examined the patient, reviewed the History & Physical and in the interval since the performance of the History & Physical I have noted the following changes of clinical significance: no changes noted
[2023-08-06] MEDS: FAMOTIDINE 20 MG TAB PO SCH (07:17)
[2023-08-06] MEDS: GABAPENTIN 300 MG CAP PO SCH (07:17)
[2023-08-06] MEDS: ACETAMINOPHEN 500 MG TAB PO SCH ×2 (07:17→13:39)
[2023-08-06] MEDS: METOCLOPRAMIDE HCL 10 MG TABLET PO SCH (07:17)
[2023-08-06] MEDS: LR 60ML/HR IV SCH (07:18)
[2023-08-06] MEDS: CeleBREX 200 MG CAP PO SCH (07:18)
[2023-08-06] MEDS: dexAMETHasone**PF** 10 MG/ML VIAL IV SCH (07:18)
[2023-08-06] MEDS: LR 500ML BOLUS, THEN 15ML/HR IV SCH (07:30)
[2023-08-06] MEDS ORDERED: FLUMAZENIL 0.1 MG/1 ML 10 ML VIAL IV PRN (07:34)
[2023-08-06] MEDS ORDERED: ePHEDrine sulfate 50 MG/ML AMP IV PRN (07:34)
[2023-08-06] MEDS ORDERED: fentaNYL citrate PF 100 MCG/2 ML VIAL IV PRN (07:34)
[2023-08-06] MEDS ORDERED: ATROPINE SULFATE 0.1 MG/ML 10ML SYR IV PRN (07:34)
[2023-08-06] MEDS ORDERED: HYDROmorphone INJ 1 MG/ML SYRINGE IV PRN (07:34)
[2023-08-06] MEDS ORDERED: PROMETHAZINE HCL 6.25 MG in SODIUM CHLORIDE 0.9% 50 ML IV PRN (07:34)
[2023-08-06] MEDS ORDERED: NALOXONE HCL 0.4 MG/1 ML VIAL/CARP IV PRN ×2 (07:34→12:58)
[2023-08-06] MEDS ORDERED: ONDANSETRON INJ 2 MG/ML 2 ML VIAL IV PRN ×2 (07:34→12:58)
[2023-08-06] MEDS ORDERED: fentaNYL citrate PF 100 MCG/2 ML VIAL ONE (07:50)
[2023-08-06] MEDS ORDERED: MIDAZOLAM HCL 1 MG/ML 2ML VIAL ONE (07:51)
[2023-08-06] MEDS: TRANEXAMIC ACID 1,000 MG **IV Pre-op IV SCH (08:42)
[2023-08-06] MEDS ORDERED: PROPOFOL IV EMULSION 10 MG/ML 20 ML VIAL IV ONE (09:30)
[2023-08-06] MEDS: ORTHO JOINT ANESTHETIC ONE (09:38)
[2023-08-06] MEDS: ROPIV 0.5% 246mg, Ketorolac 30mg, EPINEPHrine 0.5mg in NSS INFIL SCH (10:35)
--- NOTE | 2023-08-06 10:42 | Post Operative Brief Note ---
Immediate Post Op Note v1 Date of Surgery August 06, 2023 Pre & Post Diagnosis Operation Date: 08/06/23 08:55 Pre-Op Diagnosis: Primary osteoarthritis of right knee Post-Op Diagnosis: Primary osteoarthritis of right knee I identified the patient and participated in the time-out.: Yes Procedure Operation Date: 08/06/23 08:55 Actual Procedures p Right Total Knee Arthroplasty(Right),Melissa and Acticoat superficial wound VAC application - Anders Rodriguez MD Surgeon Anders Rodriguez MD Other Sales Support Worker Gregorio RAINES Estimated Blood Loss 5 Findings Consistent with Post-Op Diagnosis Specimens bone cuts Drains Hemovac Drain Anesthesia Type General Regional Complications none Disposition Disposition: Recovery Room Overlapping Procedure I was present for: the critical portions of procedure. Back up surgeon: was not required during procedure.
[2023-08-06] MEDS: TRANEXAMIC ACID 1,000 MG **IV Intra-op IV SCH (10:50)
--- NOTE | 2023-08-06 11:44 | XRay Report ---
RIGHT KNEE 2 VIEWS History: Right total knee arthroplasty. Degenerative arthritis. Postop. FINDINGS: The patient is status post a right total knee arthroplasty. The hardware is intact. No frac ture or dislocation. Skin so and surgical drains are in place. IMPRESSION: Right total knee arthroplasty. No evidence for hardware complication. ACT 112: Negative or not required by law. Electronically signed by: Arturo Cruz M.D. 08/06/2023 11:43 AM
--- NOTE | 2023-08-06 12:46 | Anesthesiology Progress Note ---
Date of Service August 06, 2023 Anesthesia Post Procedure Vital Signs Vital Signs: Temp Pulse Pulse Resp BP Pulse Ox O2 Del Method 08/06/23 12:40 36.4 C L 65 16 156/77 H 96 Room Air 08/06/23 12:30 64 18 150/79 H 92 Room Air 08/06/23 12:20 51 L 13 129/74 97 Room Air 08/06/23 12:10 52 L 16 135/74 97 Room Air 08/06/23 12:00 53 L 16 155/82 H 98 Room Air 08/06/23 11:50 36.3 C L 58 L 18 158/86 H 98 Room Air 08/06/23 11:40 61 16 125/70 92 Room Air 08/06/23 11:30 62 14 141/77 H 96 Room Air 08/06/23 11:23 36.1 C L 60 15 138/76 96 Room Air 08/06/23 07:12 36.9 C 57 L 20 168/104 H 98 Room Air Transfer of Care Handoff Completed per policy Notes Mental Status: alert / awake / arousable Patient Amnestic to Procedure: Yes Nausea / Vomiting: adequately controlled Pain: adequately controlled Airway Patency, RR, SpO2: stable & adequate BP & HR: stable & adequate Hydration State: stable & adequate Neuraxial Anesthesia: was administered and sensory block is resolving Anesthetic Complications: no major complications apparent
[2023-08-06] MEDS ORDERED: PHARMACY GLYCEMIC MGMT CONSULT PRN (12:58)
[2023-08-06] MEDS ORDERED: METOCLOPRAMIDE HCL INJ 5 MG/ML 2 ML VIAL IV PRN (12:58)
[2023-08-06] MEDS ORDERED: MAGNESIUM HYDROXIDE SUSP 30 ML UDC PO PRN (12:58)
[2023-08-06] MEDS ORDERED: bisacodyL 10 MG SUPP PR PRN (12:58)
[2023-08-06] MEDS ORDERED: HYDROmorphone INJ 0.5 MG/0.5 ML SYR IV PRN (12:58)
[2023-08-06] MEDS: SODIUM CHLORIDE 0.9% 1,000 ML IV SCH (13:10)
[2023-08-06] MEDS ORDERED: GLUCAGON FOR INJ 1 MG VIAL IM PRN (13:15)
[2023-08-06] MEDS ORDERED: CARBOHYDRATES FOR HYPOGLYCEMIA PO PRN (13:15)
[2023-08-06] MEDS ORDERED: GLUCOSE 40% GEL 15 GM TUBE PO PRN (13:15)
[2023-08-06] MEDS ORDERED: DEXTROSE 50% 50 ML SYRINGE IV PRN (13:15)
[2023-08-06] MEDS ORDERED: GLUCOSE 10 TAB/TUBE PO PRN (13:15)
--- NOTE | 2023-08-06 13:18 | Pharmacy Report ---
Pharmacy Glycemic Short Note 2 - Date of Service August 06, 2023 - Glycemic Short BSG Results (Last 24 hours): 08/06/23 08/06/23 07:11 11:27 POC Glucose 140 H 142 H OUTPATIENT ANTIDIABETIC REGIMEN: * METFORMIN 500 MG HS * A1C 6.6% 07/06/23 ASSESSMENT: * Patient admitted following Right knee TKA, received 10 mg of IV dexamethasone preop * Pre/post BSG 140-142 mg/dL * Will initiate weight based novolog and 1x dose of lantus * Overnight checks PLAN FOR INPATIENT GLYCEMIC CONTROL: * Hold outpatient oral diabetes medications * Basal insulin * Lantus 15 units x 1 * Bolus insulin * NovoLog per scale ACHS or Q6hrs while NPO * Goal Range: Low 110 mg/dL - High 140 mg/dL * Correction Factor: 20 mg/dL/unit * Nutritional / Prandial insulin per carb ratio of 1 unit per 7 grams CHO consumed
[2023-08-06] MEDS: LANTUS PER UNIT CHARGE SC ONE (13:38)
[2023-08-06] MEDS: INSULIN ASPART PER UNIT CHARGE SC SCH (13:39)
[2023-08-06] MEDS: ceFAZolin 2000MG 2,000 MG/15 ML SYR IV SCH (15:09)
--- NOTE | 2023-08-06 16:19 | Operative Report ---
Post Operative Report Pre & Post Diagnosis Operation Date: 08/06/23 08:55 Pre-Op Diagnosis: Primary osteoarthritis of right knee Post-Op Diagnosis: Primary osteoarthritis of right knee I identified the patient and participated in the time-out.: Yes Procedure Operation Date: 08/06/23 08:55 Actual Procedures p Right Total Knee Arthroplasty(Right), soha and Acticoat superficial wound VAC application- Anders Rodriguez MD Surgeon Anders Rodriguez MD Technical Document Writer Gregorio RAINES Estimated Blood Loss 5 Findings Consistent with Post-Op Diagnosis Specimens Bone cuts Drains 2 Hemovac Anesthesia Type MAC Spinal Regional Complications none Disposition Disposition: Recovery Room Indications 73-year-old male with progressive osteoarthritis in his right knee failed conservative management. Radiographs demonstrate he is varus knee [id number] medial compartment on flexion views and moderately advanced patellofemoral osteoarthritis. Description of Procedure The patient was taken to the operating room and anesthetized under spinal MAC regional block. Patient was placed supine on the the operating table. A pneumatic tourniquet was placed about the right upper thigh. The knee exam demonstrated 5 degree flexion contracture with good flexion of his knee to 130 degrees. He did have a moderately large effusion.. The involved leg was elevated exsanguinated with Esmarch bandage and the pneumatic tourniquet was raised to 325 millimeters mercury. A longitudinal incision was made across the anterior knee. Skin flaps were elevated. An incision was made into the medial retinaculum and extended up into the mid third of the quadriceps tendon and extended down to the tibial tubercle. Intra-articular findings demonstrated [id number] medial compartment and grade 3 patellofemoral osteoarthritis. The knee was exposed by excising cruciate ligaments and menisci. The infrapatellar fat pad was resected. The fat pad over the anterior femur at the upper aspect of the articular surface was resected for placement of the component in that area. A subperiosteal peel lateral release was performed around the patella. The [employer] journey 2.0 posterior stabilized total knee arthroplasty system was utilized for the procedure. The custom femoral cutting guide was pinned in position. The distal femoral cut was made. The size 6, 5 in 1 cutting block was placed. The anterior posterior and chamfer cuts were made. The knee was extended and a free hand cut technique was performed to the patella. The patella width was measured and the width was reproduced using a 35 mm symmetrical patella component. The excess lateral facet was beveled off to prevent any impingement. 3 drill holes are made for the patella component pegs. The tibia was then subluxed. The external tibial cutting guide was adjusted for slope and varus valgus alignment and was pinned in position and the proximal tibial cut was made with the oscillating saw. Flexion and extension gaps were balanced. No releases were required. The size 6 right tibial trial was externally rotated in line with the tibial tubercle and pinned in position. The punch for the stem was used. The femoral trial was inserted and centered the notch cutting devices were used and the collet was placed. Tibial trials were used for the insert. The size 12 posterior stabilized trial gave balanced ligaments through full range of motion. Patella tracking was assessed with range of motion. The patella tracked centrally. The trials were removed. The Orthomix anesthetic cocktail was injected per protocol. The cut bone surfaces and soft tissue were copiously irrigated with pulsatile lavage saline solution. The final components were cemented with Refobacin cement. The final components were Trev[employer]hew journey 2.0 size 6 right femoral component, 6 right tibial component, 12 right tibial polyethylene and a 35 mm symmetrical polyethylene patella. Xperience irrigation was placed over metal tray prior to polyethyle insertion. After the cement cured, the knee was then copiously irrigated with pulsatile lavage Xperience solution. 2 drains were brought out laterally connected to Hemovac. The quadriceps tendon and medial retinaculum were closed with interrupted [id number] #1 Vicryl sutures. The knee was taken through full range of motion and repair was secure. Knee range of motion was 0 through 135 degrees. The subcutaneous tissues were closed with 2-0 Vicryl sutures. The skin was closed with surgical so. A soha and Acticoat superficial wound VAC was applied. The tourniquet was let down and the patient had good capillary refill to the extremity. The patient tolerated the procedure well. My physician broker assistant Gregorio RAINES participated as life enrichment assistant and was integral part in all aspects of the procedure including prepping, draping, leg positioning, soft tissue retraction, instrument management and assisted in the closure , wound VAC application and will participate in postoperative care the patient. I attest to the content of the Intraoperative Record and any orders documented therein. Any exceptions are noted below.
--- NOTE | 2023-08-06 18:09 | History & Physical Report ---
Date of Service August 06, 2023 Assessment & Plan (1) Status post knee surgery: Plan: Status post right total knee arthroplasty on 08/06/2023 Management will be as per orthopedic surgeon Pain is controlled PT OT as per Ortho Will monitor CBC and electrolytes (2) HTN (hypertension): Plan: Blood pressure remains on the upper side Will continue current blood pressure medications Expected to improve (3) Diabetes type 2, controlled: Plan: Will continue with sliding scale insulin coverage (4) Dyslipidemia: Plan: Not on any statin Advised to discuss with the PCP for any statin (5) Gout: Plan: No acute gouty arthritis (6) GERD (gastroesophageal reflux disease): Plan: Continue PPI CKD stage III Remains stable Monitor PRP DVT prophylaxis Aspirin 81 mg twice daily as per Ortho CODE STATUS Full Admission and Anticipated Discharge Date Admission Date: August 06, 2023 History of Present Illness Chief Complaint: Medical management following right total knee arthroplasty Primary Care Provider: Emiliano Hightower DO Is a 73-year-old male with significant past medical history of hypertension, hyperlipidemia, gouty arthropathy, hypertensive kidney disease stage III,. Very idiopathic peripheral neuropathy, primary open-angle glaucoma, type 2 diabetes apparently underwent right total knee arthroplasty 06/19/1923. He has a preop evaluation and clearance by his primary care prior to the surgery. He has been feeling much better following surgery with minimal pain involving the right knee. Denies any other symptoms whatsoever. Remains hemodynamically stable with blood pressure on the upper side at 163/90. Allergies Allergy/AdvReac Type Severity Reaction Status Date / Time No Known Drug Allergies Allergy Unknown . Verified 08/06/23 07:14 Home Medications Medication Instructions Recorded Confirmed Type allopurinol 300 mg tablet 300 mg PO PM 07/04/23 08/06/23 History aspirin 81 mg tablet 81 mg PO HS 07/04/23 08/06/23 History atenolol 50 mg tablet 50 mg PO QAM 07/04/23 08/06/23 History metformin 500 mg tablet 500 mg PO HS 07/04/23 08/06/23 History multivitamin with minerals-folic 1 tab PO QAM 07/04/23 08/06/23 History acid 80 mcg chewable tablet (Centrum Adult 50 Plus) omeprazole 20 mg capsule,delayed 20 mg PO HS 07/04/23 08/06/23 History release travoprost 0.004 % eye drops 1 drp ophthalmic (eye) HS 07/04/23 08/06/23 History (Travatan Z) Past Med/Surg History Medical History (Updated 08/06/23 @ 18:06 by Chanel Modi MD) Gout GERD (gastroesophageal reflux disease) Dyslipidemia HTN (hypertension) Diabetes type 2, controlled Glaucoma Obesity Stage 3 chronic kidney disease Surgical History (Updated 08/06/23 @ 18:05 by Chanel Modi MD) History of colonoscopy H/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 Social History Smoking Status: Former smoker Tobacco Type: Cigarettes Smoking End Date: Quit ; Second Hand Exposure: No; Do You Dip or Chew Tobacco: No; Tobacco Cessation Education Requested by Patient: No Hx Alcohol Use: No Hx Substance Use: No Preferred Language: Ukrainian Communication Ability: Effective Metal Rivet Machine Operator Required: No Beliefs That Will Affect Care: None Current Living Situation: Spouse Other Information That Helps Us Care for You: No Feels Safe at Home: Yes Safety Concerns: Feels Safe At This Time Assistive Devices: Glasses Review of Systems Review of Systems: All systems reviewed and are unremarkable except as mentioned below Musculoskeletal: Right knee pain Physical Exam Physical Exam: Sitting on a chair without any acute distress Constitutional: well developed and well nourished; not ill appearing Eyes: PERRL, conjunctivae normal, anicteric sclerae ENMT: external ear and nose normal, oropharynx normal Neck: trachea midline, no thyromegaly Respiratory: no respiratory distress Auscultation: lungs clear to auscultation bilaterally; no crackles Cardiovascular: Rate/Rhythm: regular rate and regular rhythm; not tachycardic Heart Sounds: normal S1 and normal S2; no murmur Extremities: no edema Gastrointestinal (Abdomen): Inspection/Auscultation: normal bowel sounds; abdomen not distended Percussion/Palpation: abdomen soft; abdomen nontender Musculoskeletal: Right knee pain with movement status post arthroplasty Neurologic: plantar reflexes intact bilaterally and moves all extremities Lymphatic: no cervical or axillary lymphadenopathy Results & Data Results & Data Vital Signs (Past 12 Hours) Vital Signs Temp Pulse Pulse Resp BP Pulse Ox O2 Del Method 08/06/23 16:10 36.4 C L 65 16 163/90 H 97 Room Air 08/06/23 15:10 36.5 C 58 L 16 149/70 H 96 Room Air 08/06/23 14:17 36.4 C L 57 L 16 162/88 H 100 Room Air 08/06/23 13:41 36.5 C 63 18 174/89 H 98 Room Air 08/06/23 13:12 36.4 C L 57 L 16 151/83 H 97 Room Air 08/06/23 12:40 36.4 C L 65 16 156/77 H 96 Room Air 08/06/23 12:30 64 18 150/79 H 92 Room Air 08/06/23 12:20 51 L 13 129/74 97 Room Air 08/06/23 12:10 52 L 16 135/74 97 Room Air 08/06/23 12:00 53 L 16 155/82 H 98 Room Air 08/06/23 11:50 36.3 C L 58 L 18 158/86 H 98 Room Air 08/06/23 11:40 61 16 125/70 92 Room Air 08/06/23 11:30 62 14 141/77 H 96 Room Air 08/06/23 11:23 36.1 C L 60 15 138/76 96 Room Air 08/06/23 07:12 36.9 C 57 L 20 168/104 H 98 Room Air Medications Administered Current Inpatient Medications Acetaminophen (Acetaminophen 500 Mg Tab) 1,000 mg PO Q8 [facility] Stop: 09/05/23 13:59 Last Admin: 08/06/23 13:39 Dose: 1,000 mg Allopurinol (Allopurinol 300 Mg Tab) 300 mg PO PM [facility] Stop: 09/05/23 20:59 Aspirin (Aspirin 81 Mg Ectab) 81 mg PO BID [facility] Stop: 09/05/23 20:59 Atenolol (Atenolol 50 Mg Tablet) 50 mg PO QAM [facility] Stop: 09/06/23 08:59 Bisacodyl (Bisacodyl 10 Mg Supp) 10 mg MI DAILY PRN PRN Reason: Constipation Stop: 09/05/23 12:57 Dextrose (Dextrose 50% 50 Ml Syringe) 25 - 50 ml IV UD PRN; Protocol PRN Reason: Hypoglycemia Protocol Stop: 09/05/23 13:14 Docusate Sodium (Docusate Sodium 100 Mg Cap) 100 mg PO BID [facility] Stop: 09/05/23 20:59 Glucagon (Glucagon For Inj 1 Mg Vial) 1 mg IM UD PRN; Protocol PRN Reason: Hypoglycemia Protocol Stop: 09/05/23 13:14 Glucose (Glucose 40% Gel 15 Gm Tube) 15 - 30 gm PO UD PRN; Protocol PRN Reason: Hypoglycemia Protocol Stop: 09/05/23 13:14 Glucose (Glucose 10 Tab/Tube) 4 - 8 tab PO UD PRN; Protocol PRN Reason: Hypoglycemia Protocol Stop: 09/05/23 13:14 Hydromorphone HCl (Hydromorphone Inj 0.5 Mg/0.5 Ml Syr) 0.5 mg IV Q4H PRN PRN Reason: Pain or Pre PT Stop: 08/20/23 12:57 Sodium Chloride (Nss) 1,000 mls @ 100 mls/hr IV .Q10H [facility] Stop: 08/07/23 06:00 Last Admin: 08/06/23 13:10 Dose: 100 mls/hr Cefazolin Sodium (Ancef 2000mg) 2,000 mg in 15 mls @ 3.75 mls/min IV Q8H [facility]OOK; Protocol Stop: 08/07/23 00:03 Last Admin: 08/06/23 15:09 Dose: 3.75 mls/min Insulin Aspart (Insulin Aspart Per Unit Charge) 0 units SC ACHS [facility] Stop: 09/05/23 13:14 Last Admin: 08/06/23 17:06 Dose: 8 units Insulin Aspart (Insulin Aspart Per Unit Charge) 0 units SC TODAY@0000,0400 [facility] Stop: 09/06/23 00:00 Magnesium Hydroxide (Magnesium Hydroxide Susp 30 Ml Udc) 30 ml PO Q6H PRN PRN Reason: Constipation Stop: 09/05/23 12:57 Metoclopramide HCl (Metoclopramide Hcl Inj 5 Mg/Ml 2 Ml Vial) 10 mg IV Q6H PRN PRN Reason: Nausea And Vomiting Stop: 09/05/23 12:57 Miscellaneous (Carbohydrates For Hypoglycemia ) 15 - 30 gm PO UD PRN PRN Reason: Hypoglycemia Treatment Stop: 09/05/23 13:14 Miscellaneous Information (Pharmacy Glycemic Mgmt Consult) 1 each N/A UD PRN PRN Reason: Consult Stop: 09/05/23 12:57 Multivitamins (Multivitamin Tab) 1 tab PO QAM [facility] Stop: 09/06/23 08:59 Naloxone HCl (Naloxone Hcl 0.4 Mg/1 Ml Vial/Carp) 0.1 mg IV Q5M PRN PRN Reason: Oversedation/Resp Depression Stop: 09/05/23 12:57 Ondansetron HCl (Ondansetron Inj 2 Mg/Ml 2 Ml Vial) 4 mg IV Q6H PRN PRN Reason: Nausea And Vomiting Stop: 09/05/23 12:57 Oxycodone HCl (Oxycodone Hcl Ir 5 Mg Tab (Immediate Release)) 5 - 10 mg PO Q4H PRN PRN Reason: Pain or Pre PT Stop: 08/20/23 12:57 Pantoprazole Sodium (Pantoprazole 40 Mg Tab) 40 mg PO HS BROOK Stop: 09/05/23 20:59 Sennosides (Senna 8.6 Mg Tab) 17.2 mg PO HS [facility] Stop: 09/05/23 20:59 Travoprost (Travoprost Z 0.004% Oph Soln 2.5 Ml Btl) 1 drops OP HS [facility] Stop: 09/05/23 20:59 Code Status & VTE Plan VTE Prophylaxis Plan VTE Prophylaxis will be ordered: Yes
[2023-08-06] MEDS: TRAVOPROST Z 0.004% OPH SOLN 2.5 ML BTL OP SCH (20:10)
[2023-08-06] MEDS: ASPIRIN 81 MG ECTAB PO SCH (20:10)
[2023-08-06] MEDS: SENNA 8.6 MG TAB PO SCH (20:10)
[2023-08-06] MEDS: PANTOprazole 40 MG TAB PO SCH (20:11)
[2023-08-06] MEDS: allopurinoL 300 MG TAB PO SCH (20:11)
[2023-08-06] MEDS: DOCUSATE SODIUM 100 MG CAP PO SCH (20:11)
[2023-08-07] MEDS: INSULIN ASPART PER UNIT CHARGE SC SCH (00:10)
[2023-08-07] MEDS: hydrALAZINE HCL 20 MG/ML VIAL IV STA (00:34)
[2023-08-07] MEDS: ZOLPIDEM TARTRATE 5 MG TAB PO STA (00:34)
[2023-08-07 06:16] LABS: Basophils # (auto) 0.02 K/uL (0.00-0.20); Basophils % (auto) 0.1 %; Hematocrit (blood only) 37.2 % (42.0-52.0); Hemoglobin 12.1 g/dl (14.0-18.0); Immature Granulocytes # (auto) 0.09 K/uL (0.01-0.20); Immature Granulocytes % (auto) 0.6 %; Lymphocytes # (auto) 2.11 K/uL (1.20-3.40); Mean Corpuscular Hemoglobin 30.3 pg (25.0-34.0); Mean Corpuscular Hgb Conc 32.5 g/dL (32.0-36.0); Mean Platelet Volume 11.2 fL (9.4-12.4); Monocytes # (auto) 1.04 K/uL (0.11-0.59); Monocytes % (auto) 6.9 %; Neutrophils # (auto) 11.85 K/uL (1.40-6.50); Neutrophils % (auto) 78.4 %; Platelet Count 206 K/uL (130-400); RDW Coefficient of Variation 12.9 % (11.5-14.5); RDW Standard Deviation 43.8 fL (36.4-46.3); White Blood Count 15.11 K/ul (4.8-10.8)
[2023-08-07 06:32] LABS: Calcium 8.9 mg/dl (8.6-10.3); Creatinine Clr Calc Pharmacy 75.3 ml/min; Est GFR (African American) 76.5 ml/min; Potassium 4.2 mmol/L (3.5-5.1)
--- NOTE | 2023-08-07 07:37 | Orthopedic Progress Note ---
Date of Service August 07, 2023 Assessment & Plan (1) Status post knee surgery: Plan: Postop day #1 right total knee arthroplasty -PT/OT -Pain management as written -DVT prophylaxis: SCDs, teds, aspirin 81 mg twice daily -A.m. labs: Hemoglobin 12.1 from 13.4 preop. Acute blood loss anemia due to surgical loss versus dilutional. Leukocytosis likely reactive to surgery stress versus perioperative steroids. Patient is asymptomatic. -Discharge planning: Plan on discharge home with home health therapy. Plan on discharge home today as long as progresses well. Admission and Anticipated Discharge Date Admission Date: August 06, 2023 Subjective Patient is postop day 1 right total knee. He is doing well this morning. Some thigh pain but otherwise pain is controlled. No other complaints. Denies chest pain, shortness of breath, nausea/vomiting/diarrhea, headaches or dizziness. Review of Systems Review of Systems: All systems reviewed & are unremarkable except as noted in Subjective Physical Exam Physical Exam: Right knee: Dressings are saturated drain site otherwise intact. Melissa mild suction. Toes are mobile with good dorsiflexion. No calf tenderness. Able to straight leg raise. Distal neurovascular status and sensation is grossly intact. Omar and cotton bandage was removed. Patient's Hemovac had pulled out overnight. Hemovac was discontinued. Dressing to Hemovac site applied. Results & Data Vital Signs (Past 12 Hours) Vital Signs Temp Pulse Resp BP Pulse Ox O2 Del Method 08/07/23 03:28 36.5 C 72 18 161/82 H 97 Room Air 08/06/23 23:48 36.8 C 67 17 199/101 H 98 Room Air Diagnostic Findings Lab Results 08/06/23 08/06/23 08/06/23 Range/Units 07:11 11:27 16:29 WBC (4.8-10.8) K/ul RBC (4.70-6.10) M/uL Hgb (14.0-18.0) g/dl Hct (42.0-52.0) % MCV (80.0-100.0) fL MCH (25.0-34.0) pg MCHC (32.0-36.0) g/dL RDW Std Deviation (36.4-46.3) fL RDW Coeff of Ron (11.5-14.5) % Plt Count (130-400) K/uL MPV (9.4-12.4) fL Immature Gran % (Auto) % Neut % (Auto) % Lymph % (Auto) % Cla[place]orne % (Auto) % Eos % (Auto) % Baso % (Auto) % Neut # (Auto) (1.40-6.50) K/uL Lymph # (Auto) (1.20-3.40) K/uL [place]orne # (Auto) (0.11-0.59) K/uL Eos # (Auto) (0.00-0.50) K/uL Baso # (Auto) (0.00-0.20) K/uL Immature Gran # (Auto) (0.01-0.20) K/uL Sodium (136-145) mmol/L Potassium (3.5-5.1) mmol/L Chloride (98-107) mmol/L Carbon Dioxide (21-32) mmol/L Anion Gap (3-11) BUN (6-23) mg/dl Creatinine (0.6-1.4) mg/dl Est Cr Clr Drug Dosing ml/min Est GFR ( Amer) ml/min Est GFR (Non-Af Amer) ml/min BUN/Creatinine Ratio (10-20) Glucose (70-99(Fasting)) mg/dl POC Glucose 140 H 142 H 143 H (70-99) mg/dl Calcium (8.6-10.3) mg/dl 08/06/23 08/06/23 08/07/23 Range/Units 20:49 23:48 03:43 WBC (4.8-10.8) K/ul RBC (4.70-6.10) M/uL Hgb (14.0-18.0) g/dl Hct (42.0-52.0) % MCV (80.0-100.0) fL MCH (25.0-34.0) pg MCHC (32.0-36.0) g/dL RDW Std Deviation (36.4-46.3) fL RDW Coeff of Ron (11.5-14.5) % Plt Count (130-400) K/uL MPV (9.4-12.4) fL Immature Gran % (Auto) % Neut % (Auto) % Lymph % (Auto) % [place] % (Auto) % Eos % (Auto) % Baso % (Auto) % Neut # (Auto) (1.40-6.50) K/uL Lymph # (Auto) (1.20-3.40) K/uL Cla[place]orne # (Auto) (0.11-0.59) K/uL Eos # (Auto) (0.00-0.50) K/uL Baso # (Auto) (0.00-0.20) K/uL Immature Gran # (Auto) (0.01-0.20) K/uL Sodium (136-145) mmol/L Potassium (3.5-5.1) mmol/L Chloride (98-107) mmol/L Carbon Dioxide (21-32) mmol/L Anion Gap (3-11) BUN (6-23) mg/dl Creatinine (0.6-1.4) mg/dl Est Cr Clr Drug Dosing ml/min Est GFR ( Amer) ml/min Est GFR (Non-Af Amer) ml/min BUN/Creatinine Ratio (10-20) Glucose (70-99(Fasting)) mg/dl POC Glucose 145 H 86 104 H (70-99) mg/dl Calcium (8.6-10.3) mg/dl 08/07/23 Range/Units 05:52 WBC 15.11 H (4.8-10.8) K/ul RBC 4.00 L (4.70-6.10) M/uL Hgb 12.1 L (14.0-18.0) g/dl Hct 37.2 L (42.0-52.0) % MCV 93.0 (80.0-100.0) fL MCH 30.3 (25.0-34.0) pg MCHC 32.5 (32.0-36.0) g/dL RDW Std Deviation 43.8 (36.4-46.3) fL RDW Coeff of Ron 12.9 (11.5-14.5) % Plt Count 206 (130-400) K/uL MPV 11.2 (9.4-12.4) fL Immature Gran % (Auto) 0.6 % Neut % (Auto) 78.4 % Lymph % (Auto) 14.0 % Cla[place]orne % (Auto) 6.9 % Eos % (Auto) 0.0 % Baso % (Auto) 0.1 % Neut # (Auto) 11.85 H (1.40-6.50) K/uL Lymph # (Auto) 2.11 (1.20-3.40) K/uL Cla[place]orne # (Auto) 1.04 H (0.11-0.59) K/uL Eos # (Auto) 0.00 (0.00-0.50) K/uL Baso # (Auto) 0.02 (0.00-0.20) K/uL Immature Gran # (Auto) 0.09 (0.01-0.20) K/uL Sodium 141 (136-145) mmol/L Potassium 4.2 (3.5-5.1) mmol/L Chloride 108 H (98-107) mmol/L Carbon Dioxide 27 (21-32) mmol/L Anion Gap 6 (3-11) BUN 24 H (6-23) mg/dl Creatinine 1.09 (0.6-1.4) mg/dl Est Cr Clr Drug Dosing 75.3 ml/min Est GFR ( Amer) 76.5 ml/min Est GFR (Non-Af Amer) 66.0 ml/min BUN/Creatinine Ratio 22.0 H (10-20) Glucose 118 H (70-99(Fasting)) mg/dl POC Glucose (70-99) mg/dl Calcium 8.9 (8.6-10.3) mg/dl
[2023-08-07] MEDS: MULTIVITAMIN TAB PO SCH (07:42)
[2023-08-07] MEDS: oxyCODONE HCL IR 5 MG TAB (IMMEDIATE RELEASE) PO PRN (07:42)
[2023-08-07] MEDS: ATENOLOL 50 MG TABLET PO SCH (07:43)
[2023-08-07] MEDS ORDERED: [UNRECOGNIZED DRUG - OTHER] PO SCH (09:00)
--- NOTE | 2023-08-07 11:49 | Discharge Summary ---
Date of Service August 07, 2023 Admission HPI Per Admitting Provider Is a 73-year-old male with significant past medical history of hypertension, hyperlipidemia, gouty arthropathy, hypertensive kidney disease stage III,. Very idiopathic peripheral neuropathy, primary open-angle glaucoma, type 2 diabetes apparently underwent right total knee arthroplasty 06/19/1923. He has a preop evaluation and clearance by his primary care prior to the surgery. He has been feeling much better following surgery with minimal pain involving the right knee. Denies any other symptoms whatsoever. Remains hemodynamically stable with blood pressure on the upper side at 163/90. Admission Exam Per Admitting Provider Constitutional: well developed and well nourished; no acute distress Eyes: PERRL, conjunctivae normal, anicteric sclerae ENMT: external ear and nose normal, oropharynx normal Neck: trachea midline, no thyromegaly Respiratory: normal respiratory effort, lungs clear to auscultation Cardiovascular: RRR, no murmur, no edema Musculoskeletal: Right knee: Varus alignment. Mild effusion. Tenderness medial joint line. ROM 15-120 degrees. Stable to valgus and varus stress. Skin: no rashes, warm and dry Neurologic: patellar DTR's 2+ bilat, sensation intact Psychiatric: A+Ox3, euthymic affect Principal Diagnosis Right knee osteoarthritis Discharge Exam Right knee: Dressings are saturated drain site otherwise intact. Melissa mild suction. Toes are mobile with good dorsiflexion. No calf tenderness. Able to straight leg raise. Distal neurovascular status and sensation is grossly intact. Omar and cotton bandage was removed. Patient's Hemovac had pulled out overnight. Hemovac was discontinued. Dressing to Hemovac site applied. Discharge Data Allergies Allergy/AdvReac Type Severity Reaction Status Date / Time No Known Drug Allergies Allergy Unknown . Verified 08/06/23 07:14 Consultations 08/01/23 14:50 Consult Hospitalist Routine Procedures Performed Operation Date: 08/06/23 08:55 Actual Procedures p Right Total Knee Arthroplasty(Right) - Anders Rodriguez MD Ordered Studies 08/06/23 05:00 US - OR guided needle placemen Routine Hospital Course (1) Status post knee surgery: Postop day #1 right total knee arthroplasty -PT/OT -Pain management as written -DVT prophylaxis: SCDs, teds, aspirin 81 mg twice daily -A.m. labs: Hemoglobin 12.1 from 13.4 preop. Acute blood loss anemia due to surgical loss versus dilutional. Leukocytosis likely reactive to surgery stress versus perioperative steroids. Patient is asymptomatic. -Discharge planning: Plan on discharge home with home health therapy. Plan on discharge home today as long as progresses well. Lab Results 08/06/23 08/06/23 08/06/23 Range/Units 07:11 11:27 16:29 WBC (4.8-10.8) K/ul RBC (4.70-6.10) M/uL Hgb (14.0-18.0) g/dl Hct (42.0-52.0) % MCV (80.0-100.0) fL MCH (25.0-34.0) pg MCHC (32.0-36.0) g/dL RDW Std Deviation (36.4-46.3) fL RDW Coeff of Ron (11.5-14.5) % Plt Count (130-400) K/uL MPV (9.4-12.4) fL Immature Gran % (Auto) % Neut % (Auto) % Lymph % (Auto) % Clare % (Auto) % Eos % (Auto) % Baso % (Auto) % Neut # (Auto) (1.40-6.50) K/uL Lymph # (Auto) (1.20-3.40) K/uL Clare # (Auto) (0.11-0.59) K/uL Eos # (Auto) (0.00-0.50) K/uL Baso # (Auto) (0.00-0.20) K/uL Immature Gran # (Auto) (0.01-0.20) K/uL Sodium (136-145) mmol/L Potassium (3.5-5.1) mmol/L Chloride (98-107) mmol/L Carbon Dioxide (21-32) mmol/L Anion Gap (3-11) BUN (6-23) mg/dl Creatinine (0.6-1.4) mg/dl Est Cr Clr Drug Dosing ml/min Est GFR ( Amer) ml/min Est GFR (Non-Af Amer) ml/min BUN/Creatinine Ratio (10-20) Glucose (70-99(Fasting)) mg/dl POC Glucose 140 H 142 H 143 H (70-99) mg/dl Calcium (8.6-10.3) mg/dl 08/06/23 08/06/23 08/07/23 Range/Units 20:49 23:48 03:43 WBC (4.8-10.8) K/ul RBC (4.70-6.10) M/uL Hgb (14.0-18.0) g/dl Hct (42.0-52.0) % MCV (80.0-100.0) fL MCH (25.0-34.0) pg MCHC (32.0-36.0) g/dL RDW Std Deviation (36.4-46.3) fL RDW Coeff of Ron (11.5-14.5) % Plt Count (130-400) K/uL MPV (9.4-12.4) fL Immature Gran % (Auto) % Neut % (Auto) % Lymph % (Auto) % Clare % (Auto) % Eos % (Auto) % Baso % (Auto) % Neut # (Auto) (1.40-6.50) K/uL Lymph # (Auto) (1.20-3.40) K/uL Clare # (Auto) (0.11-0.59) K/uL Eos # (Auto) (0.00-0.50) K/uL Baso # (Auto) (0.00-0.20) K/uL Immature Gran # (Auto) (0.01-0.20) K/uL Sodium (136-145) mmol/L Potassium (3.5-5.1) mmol/L Chloride (98-107) mmol/L Carbon Dioxide (21-32) mmol/L Anion Gap (3-11) BUN (6-23) mg/dl Creatinine (0.6-1.4) mg/dl Est Cr Clr Drug Dosing ml/min Est GFR ( Amer) ml/min Est GFR (Non-Af Amer) ml/min BUN/Creatinine Ratio (10-20) Glucose (70-99(Fasting)) mg/dl POC Glucose 145 H 86 104 H (70-99) mg/dl Calcium (8.6-10.3) mg/dl 08/07/23 08/07/23 Range/Units 05:52 07:42 WBC 15.11 H (4.8-10.8) K/ul RBC 4.00 L (4.70-6.10) M/uL Hgb 12.1 L (14.0-18.0) g/dl Hct 37.2 L (42.0-52.0) % MCV 93.0 (80.0-100.0) fL MCH 30.3 (25.0-34.0) pg MCHC 32.5 (32.0-36.0) g/dL RDW Std Deviation 43.8 (36.4-46.3) fL RDW Coeff of Ron 12.9 (11.5-14.5) % Plt Count 206 (130-400) K/uL MPV 11.2 (9.4-12.4) fL Immature Gran % (Auto) 0.6 % Neut % (Auto) 78.4 % Lymph % (Auto) 14.0 % Clare % (Auto) 6.9 % Eos % (Auto) 0.0 % Baso % (Auto) 0.1 % Neut # (Auto) 11.85 H (1.40-6.50) K/uL Lymph # (Auto) 2.11 (1.20-3.40) K/uL Clare # (Auto) 1.04 H (0.11-0.59) K/uL Eos # (Auto) 0.00 (0.00-0.50) K/uL Baso # (Auto) 0.02 (0.00-0.20) K/uL Immature Gran # (Auto) 0.09 (0.01-0.20) K/uL Sodium 141 (136-145) mmol/L Potassium 4.2 (3.5-5.1) mmol/L Chloride 108 H (98-107) mmol/L Carbon Dioxide 27 (21-32) mmol/L Anion Gap 6 (3-11) BUN 24 H (6-23) mg/dl Creatinine 1.09 (0.6-1.4) mg/dl Est Cr Clr Drug Dosing 75.3 ml/min Est GFR ( Amer) 76.5 ml/min Est GFR (Non-Af Amer) 66.0 ml/min BUN/Creatinine Ratio 22.0 H (10-20) Glucose 118 H (70-99(Fasting)) mg/dl POC Glucose 109 H (70-99) mg/dl Calcium 8.9 (8.6-10.3) mg/dl Total Time Total Time Spent Total Time Spent (In Minutes): 20 Discharge Plan Discharge Items Patient Disposition: Home - Home Health Services Reason For Visit: Right Knee Osteoarthritis Discharge Diagnosis: Right knee osteoarthritis Activity: Per Instructions section Non-emergency contact: Surgeon Call non-emergency contact if: you have any medication questions, your pain is concerning for you, you have a fever, your temperature is above 101, your wound has increased redness and your wound has increased drainage Follow-up/Referrals: PCP,NO [Physician] - Diet: Regular Addtl Attending Provider Instructions: ACTIVITY RECOMMENDATIONS: SELF CARE INSTRUCTIONS AFTER TOTAL KNEE REPLACEMENT A. You may need to continue a physical therapy program after discharge from the hospital. There are several options available to you. Your doctor will assist you in selecting the best one for you. 1. An out-patient facility 2 to 3 times a week for therapy or home therapy. 2. Continue working on all exercises taught to you in the hospital. Your goals should be to increase bending of your knee to 90 degrees and beyond and to fully straighten your knee. B. You may progress at your own pace from walking with a walker or crutches to a cane; then to no assistive devices. C. Make walking a part of your daily routine. Be up as much as comfortable with rest periods throughout the day. Rest with leg elevation is very important. Use the ice wrap frequently for the first 3-4 weeks. D. There are no restrictions on activities. 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 E. Wear the long elastic stockings (SILVA hose) 20 hours a day for 2 weeks after surgery. They can be removed several times a day for laundering and for a bath. F. You may shower, no tub baths until cleared by your doctor. SPECIAL CARE INSTRUCTIONS: VERY IMPORTANT TO READ AND REVIEW A. There are a few signs you need to watch for after you are home. Call [facility] if you notice any of the followin. Increased severe knee pain. Some pain is expected especially when you exercise. 2. Increased swelling in your leg or knee; pain or swelling of the calf muscle in either lower leg. 3. Any fluid drainage from the incision. 4. Shortness of breath or chest pain. B. Please call [facility] at if you have any concerns or questions about your operation or recovery. The doctor or his nurse will return your call promptly. C. You must take antibiotics before dental work, bladder, bowel or other surgery. Your doctor will provide you with a permanent care to carry describing this precaution. IMPORTANT: * REMEMBER TO TAKE ASPIRIN, 81 MG, TWICE DAILY FOR 4 WEEKS UNLESS OTHERWISE DIRECTED. THIS IS YOUR BLOOD THINNER. * HIGH RISK PATIENTS MAY BE PRESCRIBED A STRONGER BLOOD THINNER. THIS WILL BE PROVIDED AT DISCHARGE. * CALL IF INCREASED PAIN, REDNESS, DRAINAGE OR FEVER GREATER THAT 101. * WEAR SILVA HOSE 20 HOURS PER DAY FOR 2 WEEKS. There is a large suction dressing covering your incision. This will help pull any excess drainage from the wound and allow your incision to heal properly. You may shower with this if you can keep the unit outside of the shower. If any bleeding or leakage is noted please call your doctor's office. This will remain on your incision for 7 days and then should be removed. This can be done yourself or by the home nursing staff if applicable. The entire unit is disposable once removed. Once removed, keep incision clean and dry. If redness or drainage is noted, please call your surgeon. . IF INCISION IS LEAKING THROUGH DRESSING, CALL THE OFFICE . FOLLOW UP VISIT: If appointment is not already scheduled: Please call [facility] to make a follow-up appointment for 2 weeks after your surgery at . Stand-Alone Forms: [facility], Smoking Cessation Medications and DC Order Prescriptions: New aspirin 81 mg Tablet,Delayed Release (Dr/Ec) 81 mg PO BID Qty: 60 0RF acetaminophen [Tylenol Extra Strength] 500 mg Tablet 1,000 mg PO Q8 Qty: 60 0RF oxycodone 5 mg Tablet 5 - 10 mg PO .[id number] MDD 6 PRN (Reason: pain) Qty: 30 0RF Rx Instructions: Ongoing therapy, Dr. Rodriguez supervising cefadroxil 500 mg capsule 500 mg PO BID Qty: 28 0RF Continued metformin 500 mg Tablet 500 mg PO HS travoprost [Travatan Z] 0.004 % Drops 1 drp OPHTHALMIC (EYE) HS omeprazole 20 mg Capsule,Delayed Release(Dr/Ec) 20 mg PO HS allopurinol 300 mg Tablet 300 mg PO PM atenolol 50 mg Tablet 50 mg PO QAM Centrum Adult 50 Plus 80 mcg Tablet,Chewable 1 tab PO QAM Discontinued aspirin 81 mg Tablet 81 mg PO HS Admission Data Admit Date/Time: 08/06/23 09:52 Attending Provider: Anders Rodriguez Admit Provider: Anders Rodriguez Primary Care Provider: Emiliano Hightower V. Other Providers: Kory Eugene; [facility] Other Interventions: Discharge Summary Assessment (RN) Last Done: 08/07/23 09:35
== END 2023-08-07 10:58 | disposition home health service (06) ==
LOC: ASU 06:45 → 3E 06:45